=== PATIENT | male | born 1935 | race Hispanic/Latino ===

== ENCOUNTER 2016-12-03 15:34 | Inpatient (IN) | payer MEDICARE ==
[2016-12-03 17:41] LABS: Basophils % (Auto) 0.6 % (0.0-1.8); Eosinophils % (Auto) 3.6 % (0.0-4.3); Hematocrit 47.2 % (35.5-45.6); Hemoglobin 15.5 gm/dl (11.8-15.2); Mean Corpuscular HGB Conc 33 % (32-34); Mean Corpuscular Hemoglobin 28 pg (28-32); Mean Corpuscular Volume 84 fl (84-94); Platelet Count 178 K/mm3 (140-440); Red Blood Count 5.61 M/mm3 (3.65-5.03); White Blood Count 6.5 K/mm3 (4.5-11.0)
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
[2016-12-03] MEDS ORDERED: NACL 0.9% 1000 ML 1,000 ML IV ONE (17:56)
[2016-12-03 18:05] LABS: Alanine Aminotransferase 10 units/L (7-56); Albumin 3.8 g/dL (3.9-5); Albumin/Globulin Ratio 1.2 %; Alkaline Phosphatase 88 units/L (35-129); BUN/Creatinine Ratio 13.75; Bilirubin,Total 0.4 mg/dL (0.1-1.2); Blood Urea Nitrogen 11 mg/dL (9-20); Calcium 9.8 mg/dL (8.4-10.2); Carbon Dioxide 22 mmol/L (22-30); Glucose 112 mg/dL (75-100); Potassium 4.1 mmol/L (3.6-5.0); Sodium 139 mmol/L (137-145)
[2016-12-03 18:15] LABS: INR 1.98 (0.87-1.13)
[2016-12-03 18:16] LABS: Partial Thromboplastin Time 35.9 Sec. (24.2-36.6)
[2016-12-03 18:20] LABS: Anion Gap 18 mmol/L
[2016-12-03] MEDS ORDERED: MORPHINE IV ONE (18:36)
[2016-12-03] MEDS ORDERED: ZOFRAN IV ONE (18:36)
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
[2016-12-03 21:10] LABS: Urine Drugs of Abuse Note Disclamer
[2016-12-03 21:19] LABS: Bilirubin,Urine NEG (Negative); Blood,Urine NEG (Negative); Ketones,Urine NEG (Negative); Leukocyte Esterase,Urine SM (Negative); Mucus,Urine 2+ /HPF; Nitrite,Urine NEG (Negative); Protein,Urine <15 mg/dL mg/dL (Negative); Urobilinogen,Urine < 2.0 mg/dL (<2.0)
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
[2016-12-04] MEDS ORDERED: ROCEPHIN/NS 1 GM/50 ML 50 ML IV ONE (02:24)
--- NOTE | 2016-12-04 03:13 | Admit Criteria Form ---
Admission Criteria Documentation: URINARY COMPLICATIONS Clinical Indications for Inpatient Care (Place 'X' for any and all applicable criteria): Ongoing inpatient care may be indicated for urinary complications with ANY ONE of the following: [X ]I. Urinary tract infection requiring inpatient care as indicated by ANY ONE of the following(8)(19)(20): [ ]a) Severe symptoms (eg, high fever, severe pain) [ ]b) Vomiting or dehydration requiring ongoing inpatient care [X ]c) IV antibiotic needs that cannot be managed at lower level of care [ ]d) Hemodynamic instability [ ]e) Obstruction of collecting system by stone or tumor [ ]II. Urinary retention requiring drainage or surgery (3)(4)(5)(17)(18) [ ]III. Renal failure (Use Renal Failure Criteria for further information.) [ ]IV. Oliguria(30) [ ]V. Post obstructive diuresis requiring close monitoring of urine output and intravenous compensation for excessive fluid losses(33) Extended stay beyond goal length of stay for primary condition may be needed until ALL of the following are present(3)(4)(5)(8): [ ]a) Renal function (creatinine) at baseline, or daily decreases in creatinine consistent with renal function return [ ]b) Voiding adequately or with urinary catheter or percutaneous suprapubic tube and management regimen in place that is performable at lower level of care. [ ]c) Urine output adequate [ ]d) Fever absent or resolving [ ]e) Infection absent or treatable at next level of care The original [employer] content created by [employer] has been revised. The portions of the content which have been revised are identified through the use of italic text or in bold, and [facility] has neither reviewed nor approved the modified material. All other unmodified content is copyright [employer] Please see references footnoted in the original [employer] edition 2016 Admission Criteria Met: Yes
[2016-12-04] MEDS: ROCEPHIN/NS 1 GM/50 ML 50 ML IV SCH (03:19)
[2016-12-04] MEDS: D5NS 1,000 ML IV SCH ×2 (03:56→12:18)
[2016-12-04 08:00] LABS: INR 2.29 (0.87-1.13)
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
[2016-12-04] MEDS: CARAFATE PO SCH ×3 (08:18→17:33)
[2016-12-04] MEDS ORDERED: ROCEPHIN/NS 1 GM/50 ML 50 ML IV SCH (10:00)
[2016-12-04] MEDS: ARICEPT PO SCH (10:03)
[2016-12-04] MEDS: INDERAL PO SCH (10:03)
[2016-12-04] MEDS: ZESTRIL PO SCH (10:03)
[2016-12-04] MEDS ORDERED: ZOFRAN IV PRN (12:32)
--- NOTE | 2016-12-04 12:33 | Progress Note ---
Assessment and Plan Assessment and plan: Acute metabolic encephalopathy, improving. he is less confused. Etiology unclear UTI. Started on Levaquin iv Dysphagia. Consult GI. he has history of hiatal hernia, dilatations. Left facial lesion. Surgery consulted. He has been seen by Dr. sullivan. Will need excision. On anticoagulation with Coumadin. INR therapeutic Full code status History Interval history: Altered mental status. Tremors, difficulty swallowing Hospitalist Physical - Physical exam Narrative exam: Gen appearance : not in acute distress, HEENT: Lesion left cheek, atraumatic, Neck: supple, no JVD. Lungs: clear to auscultation bilaterally, no crackles no wheezes Heart: S1 and S2 regular, no murmurs no gallop Abdomen: soft, non-tender, non-distended, normal bowel sounds Extremities: no edema, no clubbing or cyanosis Neuro : Awake, alert - Constitutional Vitals: Temp Pulse Resp BP Pulse Ox 98.2 F 69 14 177/81 97 12/04/16 08:01 12/04/16 08:01 12/04/16 08:01 12/04/16 08:01 12/04/16 08:01 General appearance: Present: no acute distress, well-nourished Results - Labs CBC & Chem 7: 12/03/16 17:21 12/03/16 17:21 Labs: Laboratory Last Values WBC 6.5 K/mm3 (4.5-11.0) 12/03/16 17:21 RBC 5.61 M/mm3 (3.65-5.03) H 12/03/16 17:21 Hgb 15.5 gm/dl (11.8-15.2) H 12/03/16 17:21 Hct 47.2 % (35.5-45.6) H 12/03/16 17:21 MCV 84 fl (84-94) 12/03/16 17:21 MCH 28 pg (28-32) 12/03/16 17:21 MCHC 33 % (32-34) 12/03/16 17:21 RDW 18.0 % (13.2-15.2) H 12/03/16 17:21 Plt Count 178 K/mm3 (140-440) 12/03/16 17:21 Lymph % (Auto) 16.4 % (13.4-35.0) 12/03/16 17:21 [place] % (Auto) 5.5 % (0.0-7.3) 12/03/16 17:21 Eos % (Auto) 3.6 % (0.0-4.3) 12/03/16 17:21 Baso % (Auto) 0.6 % (0.0-1.8) 12/03/16 17:21 Lymph # 1.1 K/mm3 (1.2-5.4) L 12/03/16 17:21 [place] # 0.4 K/mm3 (0.0-0.8) 12/03/16 17:21 Eos # 0.2 K/mm3 (0.0-0.4) 12/03/16 17:21 Baso # 0.0 K/mm3 (0.0-0.1) 12/03/16 17:21 Seg Neutrophils % 73.9 % (40.0-70.0) H 12/03/16 17:21 Seg Neutrophils # 4.8 K/mm3 (1.8-7.7) 12/03/16 17:21 PT 25.3 Sec. (12.2-14.9) H 12/04/16 07:30 INR 2.29 (0.87-1.13) H 12/04/16 07:30 APTT 35.9 Sec. (24.2-36.6) 12/03/16 17:47 Sodium 139 mmol/L (137-145) 12/03/16 17:21 Potassium 4.1 mmol/L (3.6-5.0) 12/03/16 17:21 Chloride 103.0 mmol/L (98-107) 12/03/16 17:21 Carbon Dioxide 22 mmol/L (22-30) 12/03/16 17:21 Anion Gap 18 mmol/L 12/03/16 17:21 BUN 11 mg/dL (9-20) 12/03/16 17:21 Creatinine 0.8 mg/dL (0.8-1.5) 12/03/16 17:21 Estimated GFR > 60 ml/min 12/03/16 17:21 BUN/Creatinine Ratio 13.75 % 12/03/16 17:21 Glucose 112 mg/dL (75-100) H 12/03/16 17:21 Lactic Acid 1.7 mmol/L (0.7-2.0) 12/03/16 17:47 Calcium 9.8 mg/dL (8.4-10.2) 12/03/16 17:21 Magnesium 1.9 mg/dL (1.7-2.3) 12/03/16 17:47 Total Bilirubin 0.4 mg/dL (0.1-1.2) 12/03/16 17:21 AST 15 units/L (5-40) 12/03/16 17:21 ALT 10 units/L (7-56) 12/03/16 17:21 Alkaline Phosphatase 88 units/L (35-129) 12/03/16 17:21 NT-Pro-B Natriuret Pep 240.3 pg/mL (0-900) 12/03/16 17:47 Total Protein 7.0 g/dL (6.3-8.2) 12/03/16 17:21 Albumin 3.8 g/dL (3.9-5) L 12/03/16 17:21 Albumin/Globulin Ratio 1.2 % 12/03/16 17:21 Lipase 62 units/L (13-60) H 12/03/16 17:21 Urine Color Yellow (Yellow) 12/03/16 21:00 Urine Turbidity Clear (Clear) 12/03/16 21:00 Urine pH 5.0 (5.0-7.0) 12/03/16 21:00 Ur Specific [place] 1.014 (1.003-1.030) 12/03/16 21:00 Urine Protein <15 mg/dl mg/dL (Negative) 12/03/16 21:00 Urine Glucose (UA) Neg mg/dL (Negative) 12/03/16 21:00 Urine Ketones Neg mg/dL (Negative) 12/03/16 21:00 Urine Blood Neg (Negative) 12/03/16 21:00 Urine Nitrite Neg (Negative) 12/03/16 21:00 Urine Bilirubin Neg (Negative) 12/03/16 21:00 Urine Urobilinogen < 2.0 mg/dL (<2.0) 12/03/16 21:00 Ur Leukocyte Esterase Sm (Negative) 12/03/16 21:00 Urine WBC (Auto) 11.0 /HPF (0.0-6.0) H 12/03/16 21:00 Urine RBC (Auto) 3.0 /HPF (0.0-6.0) 12/03/16 21:00 U Epithel Cells (Auto) < 1.0 /HPF (0-13.0) 12/03/16 21:00 Urine Mucus 2+ /HPF 12/03/16 21:00 Urine Opiates Screen Presumptive negative 12/03/16 21:00 Urine Methadone Screen Presumptive negative 12/03/16 21:00 Ur Barbiturates Screen Presumptive negative 12/03/16 21:00 Ur Phencyclidine Scrn Presumptive negative 12/03/16 21:00 Ur Amphetamines Screen Presumptive negative 12/03/16 21:00 U Benzodiazepines Scrn Presumptive positive 12/03/16 21:00 Urine Cocaine Screen Presumptive negative 12/03/16 21:00 U Marijuana (THC) Screen Presumptive positive 12/03/16 21:00 Drugs of Abuse Note Disclamer 12/03/16 21:00 Plasma/Serum Alcohol < 0.01 gm% (0-0.07) 12/03/16 17:47
[2016-12-04 13:02] LABS: Bilirubin,Urine NEG (Negative); Blood,Urine NEG (Negative); Ketones,Urine NEG (Negative); Leukocyte Esterase,Urine NEG (Negative); Mucus,Urine FEW /HPF; Nitrite,Urine NEG (Negative); Protein,Urine <15 mg/dL mg/dL (Negative); Urobilinogen,Urine < 2.0 mg/dL (<2.0)
[2016-12-04] MEDS ORDERED: COUMADIN PO SCH (17:00)
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
[2016-12-04] MEDS ORDERED: WATER FOR IRRIG STERILE IR ONE (19:46)
[2016-12-04] MEDS ORDERED: NACL 0.9% 1000 ML 1,000 ML ONE (19:46)
--- NOTE | 2016-12-04 20:04 | Anesthesia Consultation ---
Addendum entered and electronically signed by FIDEL ACEVEDO PA 12/10/16 11:47 : No changes from previous. CTA B, RRR No anesthesia complications noted from previous. Consent updated. Questions answered RAMON Modi Addendum entered and electronically signed by TOMAS TABARES PAAA 12/05/16 16: 29: No remarkable changes from yesterday's assessment. PENELOPE Stephens Original Note: Anesthesia Consult and Med Hx Date of service: 12/04/16 - Airway Anesthetic Teeth Evaluation: Good ROM Head & Neck: Adequate Mental/Hyoid Distance: Adequate Mallampati Class: Class II Intubation Access Assessment: Probably Good - Pulmonary Exam CTA: Yes - Cardiac Exam Cardiac Exam: RRR - Pre-Operative Health Status ASA Pre-Surgery Classification: ASA4, Emergency Proposed Anesthetic Plan: MAC - Pulmonary Hx Smoking: Yes Hx Asthma: No COPD: Yes Hx Pneumonia: No - Cardiovascular System Hx Hypertension: Yes (takes metoprolol) Hx Coronary Artery Disease: Yes (hyperlipidemia) Hx Heart Attack/AMI: (CE neg x 3; EF 55-60% per echo 05/02) Hx Angina: Yes Hx Cardia Arrhythmia: Yes (Afib; chronic anticoagulation; Lovenox stopped 04/25; 5mg Vit K PO) Hx Pacemaker: Yes (Ventricular pacing w/ capt; Sick Sinus Syndrome) - Central Nervous System Hx Neuromuscular Disorder: Yes (neuropathy BLE; migraines) Hx Seizures: Yes CVA: Yes Hx Psychiatric Problems: No - Gastrointestinal Hx Ulcer: Yes Hx Gastroesophageal Reflux Disease: Yes (hiatal hernia; largely intrathoracic stomach) - Endocrine Hx Renal Disease: No Hx End Stage Renal Disease: No Hx Liver Disease: No Hx Insulin Dependent Diabetes: No Hx Thyroid Disease: No - Other Systems 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
--- NOTE | 2016-12-04 20:05 | Anesthesia Day of Surgery ---
Anesthesia Day of Surgery - Day of Surgery Patient Examined: Yes Patient H&P Reviewed: Yes Patient is NPO: Yes Beta Blockers: Yes
[2016-12-04] MEDS ORDERED: XYLOCAINE MPF 2% ONE ×2 (20:06→22:45)
[2016-12-04] MEDS ORDERED: AMIDATE IV ONE ×5 (20:06→22:45)
[2016-12-04] MEDS ORDERED: DIPRIVAN 10 MG/ML IV ONE ×2 (20:58→21:43)
[2016-12-04] MEDS ORDERED: SUBLIMAZE ONE (22:43)
[2016-12-04] MEDS ORDERED: QUELICIN ONE (22:45)
--- NOTE | 2016-12-04 23:33 | Post Operative Note ---
Pre-op diagnosis: Dysphagia Post-op diagnosis: other (dysphagia, foreign body) Findings: EGD Esophagus: Impacted food bolus at 35cm from the oral entry site. Multiple maneuvers were performed to break up the food bolus, including Rat tooth forceps , Causey net, 4 prong grasper. The scope was finally able to traverse the bolus and enter the stomach with severe resistance noted. No dilation could be performed due to pt being on therapeutic A/C. Some of the food was able to be pushed into the stomach, but not all. Stomach: normal Duodenum: normal Plan: 1) Observe post-procedure 2) Will give trial of liquids and if fails, will consider repeat EGD 3) In the future, pureed diet Procedure: EGD w/ foreign body removal Anesthesia: MAC Surgeon: HORTENSIA ZAMORA Estimated blood loss: minimal Pathology: none Condition: stable
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
--- NOTE | 2016-12-04 23:37 | Post Operative Note ---
Pre-op diagnosis: Dypshagia, foreign body Post-op diagnosis: same Findings: Post-EGD, pt was given water to drink; shortly thereafter, pt vomited water back up, indicating the food bolus was still present, despite removal of some of the bolus. Options were to: 1) Reverse INR and re-attempt in AM with dilation (but this would carry a risk of esophageal necrosis if the food bolus was still present) 2 ) Intubate and use Causey net to retrieve bolus piecemeal. We opted for option #2; pt intubated w/o problems. Scope inserted into mouth and food bolus had largely passed. Additional bolus was able to be advanced with scope across the GE junction into the stomach. Very friable mucosa was seen at the GE junction. From the scope passage, a degree of dilation occurred with minimal blood loss. Rec: 1) Return to floor 2) Trial of liquids and if tolerates, would advance to pureed 3) Pt will eventually need dilation, but can be done as outpatient when holding Coumadin Procedure: EGD w/ foreign body removal Anesthesia: GETA Surgeon: HORTENSIA ZAMORA Estimated blood loss: minimal Pathology: none Condition: stable Disposition: floor
[2016-12-05] MEDS: INDERAL PO SCH ×3 (00:07→21:47)
[2016-12-05] MEDS: CARAFATE PO SCH ×5 (00:07→21:47)
[2016-12-05] MEDS: DESYREL PO SCH ×3 (00:07→21:47)
--- NOTE | 2016-12-05 00:08 | Operative Report ---
PROCEDURE PERFORMED: Upper endoscopy with foreign body removal. PREOPERATIVE DIAGNOSIS: Dysphagia. POSTOPERATIVE DIAGNOSES: Dysphagia, foreign body. ANESTHESIA: Via monitored anesthesia care. DESCRIPTION OF PROCEDURE: After informed consent was obtained, the patient was placed in left lateral decubitus position. The standard Fujinon upper endoscope was inserted into the esophagus where a food bolus was encountered. After multiple maneuvers to alleviate the food bolus, the scope was advanced into the stomach and up to the duodenum. The scope was then carefully withdrawn and mucosa was carefully examined. FINDINGS: Esophagus: There was evidence of an impacted food bolus at 35 cm from the oral entry site. Multiple maneuvers were performed to break up the food bolus including usage of rat tooth forceps, Causey net, and the 4-prong grasper. The scope was finally able to traverse the center of the bolus and into the stomach with resistance noted. Unfortunately, no dilation was able to be performed due to the patient being on therapeutic anticoagulation. Some of the food was able to be pushed into the stomach, but not all. Stomach: Appeared normal. Duodenum: There were superficial ulcerations in the duodenal bulb. COMPLICATIONS: None. ESTIMATED BLOOD LOSS: Minimal. IMPRESSION: An 81-year-old gentleman with acute dysphagia, status post upper endoscopy with removal of partial food bolus. RECOMMENDATIONS: 1. We will observe the patient post-procedure. 2. We will subsequently give a trial of liquids and if he fails, I will consider a repeat EGD either later this evening or tomorrow morning. 3. In the future, I would recommend consumption of a pureed diet. [facility]# [id number] MARION/KAREL HOLMAN
--- NOTE | 2016-12-05 00:34 | Operative Report ---
PROCEDURE PERFORMED: Upper endoscopy with foreign body removal. PREOPERATIVE DIAGNOSIS: Dysphagia, foreign body. POSTOPERATIVE DIAGNOSIS: Dysphagia, foreign body. ANESTHESIA: Via general anesthesia, with intubation. HISTORY: An 81-year-old gentleman with acute dysphagia with food bolus seen on upper endoscopy. He is status post upper endoscopy with partial removal of the food bolus. Post-EGD, we allowed the patient to slowly wake up and he was given water to drink, but shortly thereafter, he vomited the water backup giving me the indication that the food bolus was still present. Options were to: #1 reverse the INR and re-attempt tomorrow morning with dilation (but this would carry a risk of esophageal necrosis if the food bolus is still present for an additional 9 to 10 hours from now) and #2 to intubate the patient now and use a Causey Net to retrieve the remaining bolus in a piecemeal fashion. I felt that option #2 was the best for the patient, so he was subsequently intubated by Anesthesia without any difficulty. DESCRIPTION OF PROCEDURE: After informed consent was obtained, the patient was left in a supine position and intubated via anesthesia. He was subsequently turned onto the left lateral decubitus position. The Fujinon upper endoscope was inserted into the mouth and advanced to the second portion of the duodenum. The scope was then carefully withdrawn, and mucosa was carefully examined. FINDINGS: Esophagus: The food bolus, which was previously seen, had largely passed but there was additional bolus that was present. This was able to be advanced into the stomach with gentle scope pressure. There was very friable mucosa seen at the GE junction with minimal bleeding noted. From the scope passage alone, a degree of dilation occurred at the level of the GE junction with minimal blood loss. Stomach: Old food contents/liquid Duodenum: Again, superficial ulcerations noted. COMPLICATIONS: None. ESTIMATED BLOOD LOSS: Minimal. IMPRESSION: An 81-year-old gentleman status post repeat upper endoscopy for foreign body removal. The majority of the bolus actually did pass in between the initial endoscopy and repeat endoscopy. However, there was additional food bolus that needed to be advanced into the stomach. The maneuver was successful. RECOMMENDATIONS: 1. Return to floor. 2. Trial of liquids and if the patient tolerates, I would recommend advancing his diet to pureed in the morning. 3. He will eventually need a dilation, but this can be done as an outpatient after Coumadin is held for an appropriate amount of time. JOB# [id number] MARION/KAREL HOLMAN
[2016-12-05] MEDS: D5NS 1,000 ML IV SCH ×2 (02:30→12:56)
--- NOTE | 2016-12-05 03:39 | Progress Note ---
Subjective Narrative: Pt seen and evaluated yesterday ,contacted his son ,Had a detailed Hx ,in brief an elderly lives with his son had a huge H Hernia requiring a repair about 2years ago in [facility] , seen regularly By GI for dilitation of the esophagus , last time was about 6 weeks ago ,in with epigastric pain and nausea .I talked mahamed Gr who thankfully saw the Pt ,underwent retrieval of a large bolus of food . Ot in also C/O bleeding lesion about 1x1 Cm in the left cheek ,Pt is on coumadin for a pace maker with sick sinus syndrome .needs an excsional Bx will need to D/C coumadin ,talked to son as to that as well . Objective Vital Signs - 12hr 12/04/16 20:00 Temperature 97.6 F Pulse Rate 65 Respiratory 18 Rate Blood Pressure 147/80 O2 Sat by Pulse 98 Oximetry - Labs 12/03/16 17:21 12/03/16 17:21
[2016-12-05] MEDS: MORPHINE IV PRN ×2 (06:05→15:35)
--- NOTE | 2016-12-05 07:40 | Gastroenterology Progress Note ---
Assessment and Plan 81yo man with dysphagia s/p EGD x 2 last evening with removal of food bolus. Rec: 1) Start clear liquids this AM; if tolerates, may advance diet to pureed 2) Would avoid meats at all costs 3) He can f/u as an outpatient for repeat EGD with dilation, with appropriate cessation of Coumadin prior to the procedure I will stop following daily, but please re-call with any questions. Thank you! Subjective Date of service: 12/05/16 Principal diagnosis: Dysphagia/foreign body Interval history: Pt seen/examined today. S/P EGD x 2 last night with removal of large food bolus. Pt states that he feels much better today. No abdominal pain at this time, but had some discomfort overnight. No fevers, no signs of bleeding. No CP/SOB. Objective - Constitutional Vitals: Temp Pulse Resp BP Pulse Ox 98.8 F 72 20 122/63 95 12/05/16 04:00 12/05/16 04:00 12/05/16 04:00 12/05/16 04:00 12/05/16 04:00 General appearance: no acute distress - Neck Neck: supple - Respiratory Respiratory: bilateral: CTA - Cardiovascular Rhythm: regular Heart Sounds: Present: S1 & S2 - Extremities Extremities: No edema - Gastrointestinal General gastrointestinal: Present: soft, non-tender, non-distended, normal bowel sounds - Neurologic Neurological: alert and oriented x3 - Labs CBC & Chem 7: 12/03/16 17:21 12/03/16 17:21 Labs: Laboratory Results - last 24 hr 12/04/16 12/04/16 07:30 12:40 PT 25.3 H INR 2.29 H Urine Color Yellow Urine Turbidity Clear Urine pH 5.0 Ur Specific [place] 1.021 Urine Protein <15 mg/dl Urine Glucose (UA) Neg Urine Ketones Neg Urine Blood Neg Urine Nitrite Neg Urine Bilirubin Neg Urine Urobilinogen < 2.0 Ur Leukocyte Esterase Neg Urine WBC (Auto) 2.0 Urine RBC (Auto) 2.0 Urine Mucus Few
[2016-12-05 07:55] LABS: INR 2.5 (0.87-1.13)
[2016-12-05] MEDS: ROCEPHIN/NS 1 GM/50 ML 50 ML IV SCH (12:56)
[2016-12-05] MEDS: ARICEPT PO SCH (12:57)
[2016-12-05] MEDS: ZESTRIL PO SCH (12:58)
--- NOTE | 2016-12-05 14:42 | Progress Note ---
Assessment and Plan Assessment and plan: Acute metabolic encephalopathy, improving. he is less confused. Etiology unclear UTI. Started on Levaquin iv Dysphagia due to stuck bolus of food, s/p EGD and food disempaction yesterday. He has history of hiatal hernia, dilatations and will need follow up as outpatient for dilatation.. Left facial lesion. Surgery consulted. He has been seen by Dr. sullivan. Will need excision, likely to be done next 1-2 days. Coumadin held. I discussed with Dr. Sullivan and family.. On anticoagulation with Coumadin. INR therapeutic, now Coumadin put on hold because of anticipated surgery. Full code status Disposition: For SNF placement History Interval history: Altered mental status improved. difficulty swallowing-better after EGD Hospitalist Physical - Physical exam Narrative exam: Gen appearance : not in acute distress, HEENT: Lesion left cheek, atraumatic, Neck: supple, no JVD. Lungs: clear to auscultation bilaterally, no crackles no wheezes Heart: S1 and S2 regular, no murmurs no gallop Abdomen: soft, non-tender, non-distended, normal bowel sounds Extremities: no edema, no clubbing or cyanosis Neuro : Awake, alert - Constitutional Vitals: Temp Pulse Resp BP Pulse Ox 98.1 F 74 18 99/51 99 12/05/16 11:00 12/05/16 11:00 12/05/16 11:00 12/05/16 11:00 12/05/16 08:09 General appearance: Present: no acute distress, well-nourished Results - Labs CBC & Chem 7: 12/03/16 17:21 12/03/16 17:21 Labs: Laboratory Last Values WBC 6.5 K/mm3 (4.5-11.0) 12/03/16 17:21 RBC 5.61 M/mm3 (3.65-5.03) H 12/03/16 17:21 Hgb 15.5 gm/dl (11.8-15.2) H 12/03/16 17:21 Hct 47.2 % (35.5-45.6) H 12/03/16 17:21 MCV 84 fl (84-94) 12/03/16 17:21 MCH 28 pg (28-32) 12/03/16 17:21 MCHC 33 % (32-34) 12/03/16 17:21 RDW 18.0 % (13.2-15.2) H 12/03/16 17:21 Plt Count 178 K/mm3 (140-440) 12/03/16 17:21 Lymph % (Auto) 16.4 % (13.4-35.0) 12/03/16 17:21 [place] % (Auto) 5.5 % (0.0-7.3) 12/03/16 17:21 Eos % (Auto) 3.6 % (0.0-4.3) 12/03/16 17:21 Baso % (Auto) 0.6 % (0.0-1.8) 12/03/16 17:21 Lymph # 1.1 K/mm3 (1.2-5.4) L 12/03/16 17:21 [place] # 0.4 K/mm3 (0.0-0.8) 12/03/16 17:21 Eos # 0.2 K/mm3 (0.0-0.4) 12/03/16 17:21 Baso # 0.0 K/mm3 (0.0-0.1) 12/03/16 17:21 Seg Neutrophils % 73.9 % (40.0-70.0) H 12/03/16 17:21 Seg Neutrophils # 4.8 K/mm3 (1.8-7.7) 12/03/16 17:21 PT 27.1 Sec. (12.2-14.9) H 12/05/16 07:00 INR 2.50 (0.87-1.13) H 12/05/16 07:00 APTT 35.9 Sec. (24.2-36.6) 12/03/16 17:47 Sodium 139 mmol/L (137-145) 12/03/16 17:21 Potassium 4.1 mmol/L (3.6-5.0) 12/03/16 17:21 Chloride 103.0 mmol/L (98-107) 12/03/16 17:21 Carbon Dioxide 22 mmol/L (22-30) 12/03/16 17:21 Anion Gap 18 mmol/L 12/03/16 17:21 BUN 11 mg/dL (9-20) 12/03/16 17:21 Creatinine 0.8 mg/dL (0.8-1.5) 12/03/16 17:21 Estimated GFR > 60 ml/min 12/03/16 17:21 BUN/Creatinine Ratio 13.75 % 12/03/16 17:21 Glucose 112 mg/dL (75-100) H 12/03/16 17:21 Lactic Acid 1.7 mmol/L (0.7-2.0) 12/03/16 17:47 Calcium 9.8 mg/dL (8.4-10.2) 12/03/16 17:21 Magnesium 1.9 mg/dL (1.7-2.3) 12/03/16 17:47 Total Bilirubin 0.4 mg/dL (0.1-1.2) 12/03/16 17:21 AST 15 units/L (5-40) 12/03/16 17:21 ALT 10 units/L (7-56) 12/03/16 17:21 Alkaline Phosphatase 88 units/L (35-129) 12/03/16 17:21 NT-Pro-B Natriuret Pep 240.3 pg/mL (0-900) 12/03/16 17:47 Total Protein 7.0 g/dL (6.3-8.2) 12/03/16 17:21 Albumin 3.8 g/dL (3.9-5) L 12/03/16 17:21 Albumin/Globulin Ratio 1.2 % 12/03/16 17:21 Lipase 62 units/L (13-60) H 12/03/16 17:21 Urine Color Yellow (Yellow) 12/04/16 12:40 Urine Turbidity Clear (Clear) 12/04/16 12:40 Urine pH 5.0 (5.0-7.0) 12/04/16 12:40 Ur Specific [place] 1.021 (1.003-1.030) 12/04/16 12:40 Urine Protein <15 mg/dl mg/dL (Negative) 12/04/16 12:40 Urine Glucose (UA) Neg mg/dL (Negative) 12/04/16 12:40 Urine Ketones Neg mg/dL (Negative) 12/04/16 12:40 Urine Blood Neg (Negative) 12/04/16 12:40 Urine Nitrite Neg (Negative) 12/04/16 12:40 Urine Bilirubin Neg (Negative) 12/04/16 12:40 Urine Urobilinogen < 2.0 mg/dL (<2.0) 12/04/16 12:40 Ur Leukocyte Esterase Neg (Negative) 12/04/16 12:40 Urine WBC (Auto) 2.0 /HPF (0.0-6.0) 12/04/16 12:40 Urine RBC (Auto) 2.0 /HPF (0.0-6.0) 12/04/16 12:40 U Epithel Cells (Auto) < 1.0 /HPF (0-13.0) 12/03/16 21:00 Urine Mucus Few /HPF 12/04/16 12:40 Urine Opiates Screen Presumptive negative 12/03/16 21:00 Urine Methadone Screen Presumptive negative 12/03/16 21:00 Ur Barbiturates Screen Presumptive negative 12/03/16 21:00 Ur Phencyclidine Scrn Presumptive negative 12/03/16 21:00 Ur Amphetamines Screen Presumptive negative 12/03/16 21:00 U Benzodiazepines Scrn Presumptive positive 12/03/16 21:00 Urine Cocaine Screen Presumptive negative 12/03/16 21:00 U Marijuana (THC) Screen Presumptive positive 12/03/16 21:00 Drugs of Abuse Note Disclamer 12/03/16 21:00 Plasma/Serum Alcohol < 0.01 gm% (0-0.07) 12/03/16 17:47
[2016-12-06] MEDS: D5NS 1,000 ML IV SCH ×2 (00:21→16:04)
--- NOTE | 2016-12-06 02:23 | Progress Note ---
Subjective Patient Reports: Positive: feels better Narrative: more alert , lengthy talk with brother , INR still high ,will postpone excision of the facial lesion , case discussed with Dr Monahan as to placement Ltac ? Objective Vital Signs - 12hr 12/05/16 12/05/16 12/05/16 15:06 21:47 22:00 Temperature 97.8 F Pulse Rate 60 Pulse Rate [ 60 68 Left] Respiratory 16 22 Rate Blood Pressure 117/65 Blood Pressure 91/52 [Right Arm] O2 Sat by Pulse 95 98 Oximetry 12/05/16 23:00 Temperature 97.1 F L Pulse Rate Pulse Rate [ 60 Left] Respiratory 22 Rate Blood Pressure Blood Pressure 117/65 [Right Arm] O2 Sat by Pulse 97 Oximetry - Labs 12/03/16 17:21 12/03/16 17:21
[2016-12-06 07:35] LABS: INR 2.89 (0.87-1.13)
[2016-12-06] MEDS: ZESTRIL PO SCH (09:10)
[2016-12-06] MEDS: INDERAL PO SCH ×2 (09:10→21:32)
[2016-12-06] MEDS: ROCEPHIN/NS 1 GM/50 ML 50 ML IV SCH (09:12)
[2016-12-06] MEDS: ARICEPT PO SCH (09:12)
[2016-12-06] MEDS: CARAFATE PO SCH ×4 (09:12→21:39)
--- NOTE | 2016-12-06 09:23 | Progress Note ---
Subjective Narrative: noticed increase in INR , 2.89 today , talked to Dr Monahan , will postpone surgery asked Dr Monahan to have hematology involved or staet Vit K Objective Vital Signs - 12hr 12/05/16 12/05/16 12/05/16 21:47 22:00 23:00 Temperature 97.1 F L Pulse Rate 60 Pulse Rate [ 68 60 Left] Respiratory 22 22 Rate Blood Pressure 117/65 Blood Pressure 117/65 [Right Arm] O2 Sat by Pulse 98 97 Oximetry 12/06/16 09:10 Temperature Pulse Rate Pulse Rate [ Left] Respiratory Rate Blood Pressure 115/68 Blood Pressure [Right Arm] O2 Sat by Pulse Oximetry - Labs 12/03/16 17:21 12/03/16 17:21
[2016-12-06] MEDS ORDERED: NACL 0.9% 500 ML 500 ML IV NR (16:38)
[2016-12-06] MEDS: DESYREL PO SCH (21:40)
--- NOTE | 2016-12-06 22:32 | Progress Note ---
Assessment and Plan Assessment and plan: Acute metabolic encephalopathy, improving. He is less confused, close to baseline. Etiology unclear UTI. Continue Levaquin iv Dysphagia due to stuck bolus of food, s/p EGD and food dislodgement yesterday. He has history of hiatal hernia, dilatations and will need follow up as outpatient for dilatation.. Left facial lesion. Surgery consulted. He has been seen by Dr. sullivan. Will need excision. was planned for today but INR 2.89. I discussed with Dr. Sullivan. Will give FFP to reverse Coumadin for surgery. I discussed with cardiology Atrial fibrillation. On anticoagulation with Coumadin. INR therapeutic, now Coumadin put on hold because of anticipated surgery. Full code status Disposition: For SNF placement. Discussed with case management. History Interval history: Altered mental status improved. difficulty swallowing-better after EGD tolerating diet Hospitalist Physical - Physical exam Narrative exam: Gen appearance : not in acute distress, HEENT: Lesion left cheek, atraumatic, Neck: supple, no JVD. Lungs: clear to auscultation bilaterally, no crackles no wheezes Heart: S1 and S2 regular, no murmurs no gallop Abdomen: soft, non-tender, non-distended, normal bowel sounds Extremities: no edema, no clubbing or cyanosis Neuro : Awake, alert,oriented - Constitutional Vitals: Temp Pulse Resp BP Pulse Ox 98.4 F 76 20 136/67 100 12/06/16 20:58 12/06/16 21:32 12/06/16 20:58 12/06/16 20:58 12/06/16 15:57 General appearance: Present: no acute distress, well-nourished Results - Labs CBC & Chem 7: 12/03/16 17:21 12/03/16 17:21 Labs: Laboratory Last Values WBC 6.5 K/mm3 (4.5-11.0) 12/03/16 17:21 RBC 5.61 M/mm3 (3.65-5.03) H 12/03/16 17:21 Hgb 15.5 gm/dl (11.8-15.2) H 12/03/16 17:21 Hct 47.2 % (35.5-45.6) H 12/03/16 17:21 MCV 84 fl (84-94) 12/03/16 17:21 MCH 28 pg (28-32) 12/03/16 17:21 MCHC 33 % (32-34) 12/03/16 17:21 RDW 18.0 % (13.2-15.2) H 12/03/16 17:21 Plt Count 178 K/mm3 (140-440) 12/03/16 17:21 Lymph % (Auto) 16.4 % (13.4-35.0) 12/03/16 17:21 [place] % (Auto) 5.5 % (0.0-7.3) 12/03/16 17:21 Eos % (Auto) 3.6 % (0.0-4.3) 12/03/16 17:21 Baso % (Auto) 0.6 % (0.0-1.8) 12/03/16 17:21 Lymph # 1.1 K/mm3 (1.2-5.4) L 12/03/16 17:21 [place] # 0.4 K/mm3 (0.0-0.8) 12/03/16 17:21 Eos # 0.2 K/mm3 (0.0-0.4) 12/03/16 17:21 Baso # 0.0 K/mm3 (0.0-0.1) 12/03/16 17:21 Seg Neutrophils % 73.9 % (40.0-70.0) H 12/03/16 17:21 Seg Neutrophils # 4.8 K/mm3 (1.8-7.7) 12/03/16 17:21 PT 30.4 Sec. (12.2-14.9) H 12/06/16 06:21 INR 2.89 (0.87-1.13) H 12/06/16 06:21 APTT 35.9 Sec. (24.2-36.6) 12/03/16 17:47 Sodium 139 mmol/L (137-145) 12/03/16 17:21 Potassium 4.1 mmol/L (3.6-5.0) 12/03/16 17:21 Chloride 103.0 mmol/L (98-107) 12/03/16 17:21 Carbon Dioxide 22 mmol/L (22-30) 12/03/16 17:21 Anion Gap 18 mmol/L 12/03/16 17:21 BUN 11 mg/dL (9-20) 12/03/16 17:21 Creatinine 0.8 mg/dL (0.8-1.5) 12/03/16 17:21 Estimated GFR > 60 ml/min 12/03/16 17:21 BUN/Creatinine Ratio 13.75 % 12/03/16 17:21 Glucose 112 mg/dL (75-100) H 12/03/16 17:21 Lactic Acid 1.7 mmol/L (0.7-2.0) 12/03/16 17:47 Calcium 9.8 mg/dL (8.4-10.2) 12/03/16 17:21 Magnesium 1.9 mg/dL (1.7-2.3) 12/03/16 17:47 Total Bilirubin 0.4 mg/dL (0.1-1.2) 12/03/16 17:21 AST 15 units/L (5-40) 12/03/16 17:21 ALT 10 units/L (7-56) 12/03/16 17:21 Alkaline Phosphatase 88 units/L (35-129) 12/03/16 17:21 NT-Pro-B Natriuret Pep 240.3 pg/mL (0-900) 12/03/16 17:47 Total Protein 7.0 g/dL (6.3-8.2) 12/03/16 17:21 Albumin 3.8 g/dL (3.9-5) L 12/03/16 17:21 Albumin/Globulin Ratio 1.2 % 12/03/16 17:21 Lipase 62 units/L (13-60) H 12/03/16 17:21 Urine Color Yellow (Yellow) 12/04/16 12:40 Urine Turbidity Clear (Clear) 12/04/16 12:40 Urine pH 5.0 (5.0-7.0) 12/04/16 12:40 Ur Specific [place] 1.021 (1.003-1.030) 12/04/16 12:40 Urine Protein <15 mg/dl mg/dL (Negative) 12/04/16 12:40 Urine Glucose (UA) Neg mg/dL (Negative) 12/04/16 12:40 Urine Ketones Neg mg/dL (Negative) 12/04/16 12:40 Urine Blood Neg (Negative) 12/04/16 12:40 Urine Nitrite Neg (Negative) 12/04/16 12:40 Urine Bilirubin Neg (Negative) 12/04/16 12:40 Urine Urobilinogen < 2.0 mg/dL (<2.0) 12/04/16 12:40 Ur Leukocyte Esterase Neg (Negative) 12/04/16 12:40 Urine WBC (Auto) 2.0 /HPF (0.0-6.0) 12/04/16 12:40 Urine RBC (Auto) 2.0 /HPF (0.0-6.0) 12/04/16 12:40 U Epithel Cells (Auto) < 1.0 /HPF (0-13.0) 12/03/16 21:00 Urine Mucus Few /HPF 12/04/16 12:40 Urine Opiates Screen Presumptive negative 12/03/16 21:00 Urine Methadone Screen Presumptive negative 12/03/16 21:00 Ur Barbiturates Screen Presumptive negative 12/03/16 21:00 Ur Phencyclidine Scrn Presumptive negative 12/03/16 21:00 Ur Amphetamines Screen Presumptive negative 12/03/16 21:00 U Benzodiazepines Scrn Presumptive positive 12/03/16 21:00 Urine Cocaine Screen Presumptive negative 12/03/16 21:00 U Marijuana (THC) Screen Presumptive positive 12/03/16 21:00 Drugs of Abuse Note Disclamer 12/03/16 21:00 Plasma/Serum Alcohol < 0.01 gm% (0-0.07) 12/03/16 17:47 Blood Type A POSITIVE 12/06/16 16:38
[2016-12-07 05:48] LABS: INR 1.75 (0.87-1.13)
[2016-12-07] MEDS: CARAFATE PO SCH ×4 (08:00→21:45)
--- NOTE | 2016-12-07 09:04 | Progress Note ---
Subjective Patient Reports: Positive: no new complaints Narrative: case discussed with Dr Monahan , INR still on the high side 1.7 , we need it at 1.1 to1.4 level. Pt can be discharged to a [facility] will proceed early next week. Objective Vital Signs - 12hr 12/06/16 12/06/16 12/06/16 21:32 22:00 23:00 Temperature 97.8 F Pulse Rate 76 60 Pulse Rate [ Apical] Respiratory 16 20 Rate Blood Pressure 135/64 Blood Pressure [Left Arm] O2 Sat by Pulse Oximetry 12/06/16 12/07/16 12/07/16 23:41 00:00 00:30 Temperature 97.4 F L 97.8 F 97.2 F L Pulse Rate 59 L 59 L Pulse Rate [ 60 Apical] Respiratory 18 20 18 Rate Blood Pressure 138/85 130/68 Blood Pressure 135/64 [Left Arm] O2 Sat by Pulse Oximetry 12/07/16 12/07/16 12/07/16 00:41 02:00 02:32 Temperature 98.4 F 98.3 F 97.6 F Pulse Rate 60 60 60 Pulse Rate [ Apical] Respiratory 20 16 16 Rate Blood Pressure 150/86 118/70 137/66 Blood Pressure [Left Arm] O2 Sat by Pulse Oximetry 12/07/16 12/07/16 12/07/16 03:07 04:00 04:17 Temperature 97.4 F L 98.1 F 98.0 F Pulse Rate 60 60 59 L Pulse Rate [ Apical] Respiratory 16 16 16 Rate Blood Pressure 140/65 133/63 133/63 Blood Pressure [Left Arm] O2 Sat by Pulse Oximetry 12/07/16 12/07/16 04:30 08:00 Temperature 97.6 F 98.2 F Pulse Rate 60 Pulse Rate [ 72 Apical] Respiratory 20 16 Rate Blood Pressure 134/86 Blood Pressure 110/64 [Left Arm] O2 Sat by Pulse 100 Oximetry - Labs 12/03/16 17:21 12/03/16 17:21
[2016-12-07] MEDS: ROCEPHIN/NS 1 GM/50 ML 50 ML IV SCH (10:05)
[2016-12-07] MEDS: ZESTRIL PO SCH (12:18)
[2016-12-07] MEDS: ARICEPT PO SCH (12:18)
[2016-12-07] MEDS: INDERAL PO SCH ×2 (12:18→21:45)
--- NOTE | 2016-12-07 13:13 | Progress Note ---
Assessment and Plan Assessment and plan: Acute metabolic encephalopathy, improving. He is less confused, close to baseline. Etiology unclear. UTI. Continue Levaquin iv Dysphagia due to stuck bolus of food, s/p EGD and food dislodgement. He has history of hiatal hernia, dilatations and will need follow up as outpatient for dilatation.. Left facial lesion. Surgeon, Dr. Whiting, following. INR 1.75 today after [address] Whiting says will only do procedure when INR<1.3 because risk of bleeding. Atrial fibrillation. On anticoagulation with Coumadin. INR was therapeutic, now Coumadin put on hold because of anticipated surgery. Full code status Disposition: For SNF placement. Discussed with case management. History Interval history: Altered mental status improved- he is awake, alert. Difficulty swallowing-better after EGD tolerating diet Hospitalist Physical - Physical exam Narrative exam: Gen appearance: not in acute distress, HEENT: Lesion left cheek, atraumatic, Neck: supple, no JVD. Lungs: Clear to auscultation bilaterally, no crackles no wheezes Heart: S1 and S2 regular, no murmurs no gallop Abdomen: soft, non-tender, non-distended, normal bowel sounds Extremities: no edema, no clubbing or cyanosis Neuro : Awake, alert,oriented - Constitutional Vitals: Temp Pulse Resp BP Pulse Ox 98.2 F 72 16 110/64 100 12/07/16 08:00 12/07/16 08:00 12/07/16 08:00 12/07/16 08:00 12/07/16 08:00 General appearance: Present: no acute distress, well-nourished Results - Labs CBC & Chem 7: 12/03/16 17:21 12/03/16 17:21 Labs: Laboratory Last Values WBC 6.5 K/mm3 (4.5-11.0) 12/03/16 17:21 RBC 5.61 M/mm3 (3.65-5.03) H 12/03/16 17:21 Hgb 15.5 gm/dl (11.8-15.2) H 12/03/16 17:21 Hct 47.2 % (35.5-45.6) H 12/03/16 17:21 MCV 84 fl (84-94) 12/03/16 17:21 MCH 28 pg (28-32) 12/03/16 17:21 MCHC 33 % (32-34) 12/03/16 17:21 RDW 18.0 % (13.2-15.2) H 12/03/16 17:21 Plt Count 178 K/mm3 (140-440) 12/03/16 17:21 Lymph % (Auto) 16.4 % (13.4-35.0) 12/03/16 17:21 [place] % (Auto) 5.5 % (0.0-7.3) 12/03/16 17:21 Eos % (Auto) 3.6 % (0.0-4.3) 12/03/16 17:21 Baso % (Auto) 0.6 % (0.0-1.8) 12/03/16 17:21 Lymph # 1.1 K/mm3 (1.2-5.4) L 12/03/16 17:21 [place] # 0.4 K/mm3 (0.0-0.8) 12/03/16 17:21 Eos # 0.2 K/mm3 (0.0-0.4) 12/03/16 17:21 Baso # 0.0 K/mm3 (0.0-0.1) 12/03/16 17:21 Seg Neutrophils % 73.9 % (40.0-70.0) H 12/03/16 17:21 Seg Neutrophils # 4.8 K/mm3 (1.8-7.7) 12/03/16 17:21 PT 20.4 Sec. (12.2-14.9) H 12/07/16 04:59 INR 1.75 (0.87-1.13) H 12/07/16 04:59 APTT 35.9 Sec. (24.2-36.6) 12/03/16 17:47 Sodium 139 mmol/L (137-145) 12/03/16 17:21 Potassium 4.1 mmol/L (3.6-5.0) 12/03/16 17:21 Chloride 103.0 mmol/L (98-107) 12/03/16 17:21 Carbon Dioxide 22 mmol/L (22-30) 12/03/16 17:21 Anion Gap 18 mmol/L 01/16/17 17:21 BUN 11 mg/dL (9-20) 12/03/16 17:21 Creatinine 0.8 mg/dL (0.8-1.5) 12/03/16 17:21 Estimated GFR > 60 ml/min 12/03/16 17:21 BUN/Creatinine Ratio 13.75 % 12/03/16 17:21 Glucose 112 mg/dL (75-100) H 12/03/16 17:21 Lactic Acid 1.7 mmol/L (0.7-2.0) 12/03/16 17:47 Calcium 9.8 mg/dL (8.4-10.2) 12/03/16 17:21 Magnesium 1.9 mg/dL (1.7-2.3) 12/03/16 17:47 Total Bilirubin 0.4 mg/dL (0.1-1.2) 12/03/16 17:21 AST 15 units/L (5-40) 12/03/16 17:21 ALT 10 units/L (7-56) 12/03/16 17:21 Alkaline Phosphatase 88 units/L (35-129) 12/03/16 17:21 NT-Pro-B Natriuret Pep 240.3 pg/mL (0-900) 12/03/16 17:47 Total Protein 7.0 g/dL (6.3-8.2) 12/03/16 17:21 Albumin 3.8 g/dL (3.9-5) L 12/03/16 17:21 Albumin/Globulin Ratio 1.2 % 12/03/16 17:21 Lipase 62 units/L (13-60) H 12/03/16 17:21 Urine Color Yellow (Yellow) 12/04/16 12:40 Urine Turbidity Clear (Clear) 12/04/16 12:40 Urine pH 5.0 (5.0-7.0) 12/04/16 12:40 Ur Specific [place] 1.021 (1.003-1.030) 12/04/16 12:40 Urine Protein <15 mg/dl mg/dL (Negative) 12/04/16 12:40 Urine Glucose (UA) Neg mg/dL (Negative) 12/04/16 12:40 Urine Ketones Neg mg/dL (Negative) 12/04/16 12:40 Urine Blood Neg (Negative) 12/04/16 12:40 Urine Nitrite Neg (Negative) 12/04/16 12:40 Urine Bilirubin Neg (Negative) 12/04/16 12:40 Urine Urobilinogen < 2.0 mg/dL (<2.0) 12/04/16 12:40 Ur Leukocyte Esterase Neg (Negative) 12/04/16 12:40 Urine WBC (Auto) 2.0 /HPF (0.0-6.0) 12/04/16 12:40 Urine RBC (Auto) 2.0 /HPF (0.0-6.0) 12/04/16 12:40 U Epithel Cells (Auto) < 1.0 /HPF (0-13.0) 12/03/16 21:00 Urine Mucus Few /HPF 12/04/16 12:40 Urine Opiates Screen Presumptive negative 12/03/16 21:00 Urine Methadone Screen Presumptive negative 12/03/16 21:00 Ur Barbiturates Screen Presumptive negative 12/03/16 21:00 Ur Phencyclidine Scrn Presumptive negative 12/03/16 21:00 Ur Amphetamines Screen Presumptive negative 12/03/16 21:00 U Benzodiazepines Scrn Presumptive positive 12/03/16 21:00 Urine Cocaine Screen Presumptive negative 12/03/16 21:00 U Marijuana (THC) Screen Presumptive positive 12/03/16 21:00 Drugs of Abuse Note Disclamer 12/03/16 21:00 Plasma/Serum Alcohol < 0.01 gm% (0-0.07) 12/03/16 17:47 Blood Type A POSITIVE 12/06/16 16:38
[2016-12-07] MEDS: DESYREL PO SCH (21:45)
[2016-12-08] MEDS: D5NS 1,000 ML IV SCH (03:07)
[2016-12-08 06:23] LABS: INR 1.95 (0.87-1.13)
[2016-12-08] MEDS: MORPHINE IV PRN (07:00)
[2016-12-08] MEDS ORDERED: VITAMIN K *NICU IV ONE (07:02)
[2016-12-08] MEDS ORDERED: VITAMIN K (ADULT ONLY) 5 MG in NACL 0.9% 50 ML IV ONE (08:00)
[2016-12-08] MEDS: CARAFATE PO SCH ×4 (08:34→21:53)
[2016-12-08] MEDS: ZESTRIL PO SCH (11:25)
[2016-12-08] MEDS: ARICEPT PO SCH (11:29)
[2016-12-08] MEDS: INDERAL PO SCH ×2 (11:29→21:54)
[2016-12-08] MEDS: ROCEPHIN/NS 1 GM/50 ML 50 ML IV SCH (11:30)
--- NOTE | 2016-12-08 12:04 | Progress Note ---
Assessment and Plan Assessment and plan: Acute metabolic encephalopathy, improving. He is less confused, close to baseline. Etiology unclear. UTI. Continue Levaquin iv Dysphagia due to stuck bolus of food, s/p EGD and food dislodgement. He has history of hiatal hernia, dilatations and will need follow up as outpatient for dilatation.. Left facial lesion. Surgeon, Dr. Whiting, following. INR 1.95 today after [address] Whiting says will only do procedure when INR<1.3 because risk of bleeding. Vitamin K ordered Atrial fibrillation. On anticoagulation with Coumadin. INR was therapeutic, now Coumadin put on hold because of anticipated surgery. Full code status Disposition: For SNF placement. Discussed with case management. History Interval history: Altered mental status improved- he is awake, alert. Difficulty swallowing-better after EGD tolerating soft diet Hospitalist Physical - Physical exam Narrative exam: Gen appearance: not in acute distress, HEENT: Lesion left cheek, atraumatic, Neck: supple, no JVD. Lungs: Clear to auscultation bilaterally, no crackles no wheezes Heart: S1 and S2 regular, no murmurs no gallop Abdomen: soft, non-tender, non-distended, normal bowel sounds Extremities: no edema, no clubbing or cyanosis Neuro : Awake, alert,oriented - Constitutional Vitals: Temp Pulse Resp BP Pulse Ox 97.7 F 60 20 150/70 98 12/08/16 08:00 12/08/16 08:00 12/08/16 08:00 12/08/16 11:29 12/08/16 08:00 General appearance: Present: no acute distress, well-nourished Results - Labs CBC & Chem 7: 12/03/16 17:21 12/03/16 17:21 Labs: Laboratory Last Values WBC 6.5 K/mm3 (4.5-11.0) 12/03/16 17:21 RBC 5.61 M/mm3 (3.65-5.03) H 12/03/16 17:21 Hgb 15.5 gm/dl (11.8-15.2) H 12/03/16 17:21 Hct 47.2 % (35.5-45.6) H 12/03/16 17:21 MCV 84 fl (84-94) 12/03/16 17:21 MCH 28 pg (28-32) 12/03/16 17:21 MCHC 33 % (32-34) 12/03/16 17:21 RDW 18.0 % (13.2-15.2) H 12/03/16 17:21 Plt Count 178 K/mm3 (140-440) 12/03/16 17:21 Lymph % (Auto) 16.4 % (13.4-35.0) 12/03/16 17:21 [place] % (Auto) 5.5 % (0.0-7.3) 12/03/16 17:21 Eos % (Auto) 3.6 % (0.0-4.3) 12/03/16 17:21 Baso % (Auto) 0.6 % (0.0-1.8) 12/03/16 17:21 Lymph # 1.1 K/mm3 (1.2-5.4) L 12/03/16 17:21 [place] # 0.4 K/mm3 (0.0-0.8) 12/03/16 17:21 Eos # 0.2 K/mm3 (0.0-0.4) 12/03/16 17:21 Baso # 0.0 K/mm3 (0.0-0.1) 12/03/16 17:21 Seg Neutrophils % 73.9 % (40.0-70.0) H 12/03/16 17:21 Seg Neutrophils # 4.8 K/mm3 (1.8-7.7) 12/03/16 17:21 PT 22.3 Sec. (12.2-14.9) H 12/08/16 05:37 INR 1.95 (0.87-1.13) H 12/08/16 05:37 APTT 35.9 Sec. (24.2-36.6) 12/03/16 17:47 Sodium 139 mmol/L (137-145) 12/03/16 17:21 Potassium 4.1 mmol/L (3.6-5.0) 12/03/16 17:21 Chloride 103.0 mmol/L (98-107) 12/03/16 17:21 Carbon Dioxide 22 mmol/L (22-30) 12/03/16 17:21 Anion Gap 18 mmol/L 12/03/16 17:21 BUN 11 mg/dL (9-20) 12/03/16 17:21 Creatinine 0.8 mg/dL (0.8-1.5) 12/03/16 17:21 Estimated GFR > 60 ml/min 12/03/16 17:21 BUN/Creatinine Ratio 13.75 % 12/03/16 17:21 Glucose 112 mg/dL (75-100) H 12/03/16 17:21 Lactic Acid 1.7 mmol/L (0.7-2.0) 12/03/16 17:47 Calcium 9.8 mg/dL (8.4-10.2) 12/03/16 17:21 Magnesium 1.9 mg/dL (1.7-2.3) 12/03/16 17:47 Total Bilirubin 0.4 mg/dL (0.1-1.2) 12/03/16 17:21 AST 15 units/L (5-40) 12/03/16 17:21 ALT 10 units/L (7-56) 12/03/16 17:21 Alkaline Phosphatase 88 units/L (35-129) 12/03/16 17:21 NT-Pro-B Natriuret Pep 240.3 pg/mL (0-900) 12/03/16 17:47 Total Protein 7.0 g/dL (6.3-8.2) 12/03/16 17:21 Albumin 3.8 g/dL (3.9-5) L 12/03/16 17:21 Albumin/Globulin Ratio 1.2 % 12/03/16 17:21 Lipase 62 units/L (13-60) H 12/03/16 17:21 Urine Color Yellow (Yellow) 12/04/16 12:40 Urine Turbidity Clear (Clear) 12/04/16 12:40 Urine pH 5.0 (5.0-7.0) 12/04/16 12:40 Ur Specific [place] 1.021 (1.003-1.030) 12/04/16 12:40 Urine Protein <15 mg/dl mg/dL (Negative) 12/04/16 12:40 Urine Glucose (UA) Neg mg/dL (Negative) 12/04/16 12:40 Urine Ketones Neg mg/dL (Negative) 12/04/16 12:40 Urine Blood Neg (Negative) 12/04/16 12:40 Urine Nitrite Neg (Negative) 12/04/16 12:40 Urine Bilirubin Neg (Negative) 12/04/16 12:40 Urine Urobilinogen < 2.0 mg/dL (<2.0) 12/04/16 12:40 Ur Leukocyte Esterase Neg (Negative) 12/04/16 12:40 Urine WBC (Auto) 2.0 /HPF (0.0-6.0) 12/04/16 12:40 Urine RBC (Auto) 2.0 /HPF (0.0-6.0) 12/04/16 12:40 U Epithel Cells (Auto) < 1.0 /HPF (0-13.0) 12/03/16 21:00 Urine Mucus Few /HPF 12/04/16 12:40 Urine Opiates Screen Presumptive negative 12/03/16 21:00 Urine Methadone Screen Presumptive negative 12/03/16 21:00 Ur Barbiturates Screen Presumptive negative 12/03/16 21:00 Ur Phencyclidine Scrn Presumptive negative 12/03/16 21:00 Ur Amphetamines Screen Presumptive negative 12/03/16 21:00 U Benzodiazepines Scrn Presumptive positive 12/03/16 21:00 Urine Cocaine Screen Presumptive negative 12/03/16 21:00 U Marijuana (THC) Screen Presumptive positive 12/03/16 21:00 Drugs of Abuse Note Disclamer 12/03/16 21:00 Plasma/Serum Alcohol < 0.01 gm% (0-0.07) 12/03/16 17:47 Blood Type A POSITIVE 12/06/16 16:38
[2016-12-08] MEDS: DESYREL PO SCH (21:54)
[2016-12-09 07:53] LABS: INR 1.23 (0.87-1.13)
[2016-12-09] MEDS: D5NS 1,000 ML IV SCH (09:47)
[2016-12-09] MEDS: ROCEPHIN/NS 1 GM/50 ML 50 ML IV SCH (09:48)
[2016-12-09] MEDS: INDERAL PO SCH ×2 (09:49→21:59)
[2016-12-09] MEDS: ARICEPT PO SCH (09:50)
[2016-12-09] MEDS: CARAFATE PO SCH ×4 (09:50→21:58)
[2016-12-09] MEDS: ZESTRIL PO SCH (09:51)
[2016-12-09] MEDS: TYLENOL PO PRN (10:20)
[2016-12-09] MEDS: MORPHINE IV PRN (12:31)
--- NOTE | 2016-12-09 15:34 | Progress Note ---
Assessment and Plan Assessment and plan: Acute metabolic encephalopathy, resolved. Confusion has resolved . He is back to baseline. UTI. Continue Ceftriaxone iv. To complete 7 days tomorrow Dysphagia due to stuck bolus of food, s/p EGD and food dislodgement. He has history of hiatal hernia, dilatations and will need follow up as outpatient for dilatation.. Left facial lesion. Surgeon, Dr. Whiting, following. INR 1.23 today after 2 Units FFP and Vit K iv. Dr. Wihting says will only do procedure when INR<1.3 because risk of bleeding. For excisional biopsy tomorrow. Atrial fibrillation. On anticoagulation with Coumadin. INR was therapeutic, now Coumadin put on hold because of anticipated surgery. Full code status Disposition: For SNF placement. Discussed with case management. History Interval history: Altered mental status resolved- he is awake, alert. no more confusion tolerating soft diet Hospitalist Physical - Physical exam Narrative exam: Gen appearance: not in acute distress, HEENT: Lesion left cheek, atraumatic, Neck: supple, no JVD. Lungs: Clear to auscultation bilaterally, no crackles no wheezes Heart: S1 and S2 regular, no murmurs no gallop Abdomen: soft, non-tender, non-distended, normal bowel sounds Extremities: no edema, no clubbing or cyanosis Neuro : Awake, alert,oriented - Constitutional Vitals: Temp Pulse Resp BP Pulse Ox 98.2 F 50 L 20 144/66 99 12/09/16 12:45 12/09/16 12:45 12/09/16 12:45 12/09/16 12:45 12/09/16 08:04 General appearance: Present: no acute distress, well-nourished Results - Labs CBC & Chem 7: 12/03/16 17:21 12/03/16 17:21 Labs: Laboratory Last Values WBC 6.5 K/mm3 (4.5-11.0) 12/03/16 17:21 RBC 5.61 M/mm3 (3.65-5.03) H 12/03/16 17:21 Hgb 15.5 gm/dl (11.8-15.2) H 12/03/16 17:21 Hct 47.2 % (35.5-45.6) H 12/03/16 17:21 MCV 84 fl (84-94) 12/03/16 17:21 MCH 28 pg (28-32) 12/03/16 17:21 MCHC 33 % (32-34) 12/03/16 17:21 RDW 18.0 % (13.2-15.2) H 12/03/16 17:21 Plt Count 178 K/mm3 (140-440) 12/03/16 17:21 Lymph % (Auto) 16.4 % (13.4-35.0) 12/03/16 17:21 [place] % (Auto) 5.5 % (0.0-7.3) 12/03/16 17:21 Eos % (Auto) 3.6 % (0.0-4.3) 12/03/16 17:21 Baso % (Auto) 0.6 % (0.0-1.8) 12/03/16 17:21 Lymph # 1.1 K/mm3 (1.2-5.4) L 12/03/16 17:21 [place] # 0.4 K/mm3 (0.0-0.8) 12/03/16 17:21 Eos # 0.2 K/mm3 (0.0-0.4) 12/03/16 17:21 Baso # 0.0 K/mm3 (0.0-0.1) 12/03/16 17:21 Seg Neutrophils % 73.9 % (40.0-70.0) H 12/03/16 17:21 Seg Neutrophils # 4.8 K/mm3 (1.8-7.7) 12/03/16 17:21 PT 15.4 Sec. (12.2-14.9) H 12/09/16 06:26 INR 1.23 (0.87-1.13) H 12/09/16 06:26 APTT 35.9 Sec. (24.2-36.6) 12/03/16 17:47 Sodium 139 mmol/L (137-145) 12/03/16 17:21 Potassium 4.1 mmol/L (3.6-5.0) 12/03/16 17:21 Chloride 103.0 mmol/L (98-107) 12/03/16 17:21 Carbon Dioxide 22 mmol/L (22-30) 01/16/17 17:21 Anion Gap 18 mmol/L 12/03/16 17:21 BUN 11 mg/dL (9-20) 12/03/16 17:21 Creatinine 0.8 mg/dL (0.8-1.5) 12/03/16 17:21 Estimated GFR > 60 ml/min 12/03/16 17:21 BUN/Creatinine Ratio 13.75 % 12/03/16 17:21 Glucose 112 mg/dL (75-100) H 12/03/16 17:21 POC Glucose 106 (70-105) H 12/09/16 10:56 Lactic Acid 1.7 mmol/L (0.7-2.0) 12/03/16 17:47 Calcium 9.8 mg/dL (8.4-10.2) 12/03/16 17:21 Magnesium 1.9 mg/dL (1.7-2.3) 12/03/16 17:47 Total Bilirubin 0.4 mg/dL (0.1-1.2) 12/03/16 17:21 AST 15 units/L (5-40) 12/03/16 17:21 ALT 10 units/L (7-56) 12/03/16 17:21 Alkaline Phosphatase 88 units/L (35-129) 12/03/16 17:21 NT-Pro-B Natriuret Pep 240.3 pg/mL (0-900) 12/03/16 17:47 Total Protein 7.0 g/dL (6.3-8.2) 12/03/16 17:21 Albumin 3.8 g/dL (3.9-5) L 12/03/16 17:21 Albumin/Globulin Ratio 1.2 % 12/03/16 17:21 Lipase 62 units/L (13-60) H 12/03/16 17:21 Urine Color Yellow (Yellow) 12/04/16 12:40 Urine Turbidity Clear (Clear) 12/04/16 12:40 Urine pH 5.0 (5.0-7.0) 12/04/16 12:40 Ur Specific [place] 1.021 (1.003-1.030) 12/04/16 12:40 Urine Protein <15 mg/dl mg/dL (Negative) 12/04/16 12:40 Urine Glucose (UA) Neg mg/dL (Negative) 12/04/16 12:40 Urine Ketones Neg mg/dL (Negative) 12/04/16 12:40 Urine Blood Neg (Negative) 12/04/16 12:40 Urine Nitrite Neg (Negative) 12/04/16 12:40 Urine Bilirubin Neg (Negative) 12/04/16 12:40 Urine Urobilinogen < 2.0 mg/dL (<2.0) 12/04/16 12:40 Ur Leukocyte Esterase Neg (Negative) 12/04/16 12:40 Urine WBC (Auto) 2.0 /HPF (0.0-6.0) 12/04/16 12:40 Urine RBC (Auto) 2.0 /HPF (0.0-6.0) 12/04/16 12:40 U Epithel Cells (Auto) < 1.0 /HPF (0-13.0) 12/03/16 21:00 Urine Mucus Few /HPF 12/04/16 12:40 Urine Opiates Screen Presumptive negative 12/03/16 21:00 Urine Methadone Screen Presumptive negative 12/03/16 21:00 Ur Barbiturates Screen Presumptive negative 12/03/16 21:00 Ur Phencyclidine Scrn Presumptive negative 12/03/16 21:00 Ur Amphetamines Screen Presumptive negative 12/03/16 21:00 U Benzodiazepines Scrn Presumptive positive 12/03/16 21:00 Urine Cocaine Screen Presumptive negative 12/03/16 21:00 U Marijuana (THC) Screen Presumptive positive 12/03/16 21:00 Drugs of Abuse Note Disclamer 12/03/16 21:00 Plasma/Serum Alcohol < 0.01 gm% (0-0.07) 12/03/16 17:47 Blood Type A POSITIVE 12/06/16 16:38
[2016-12-09 17:18] LABS: Hematocrit 36.9 % (35.5-45.6); Hemoglobin 12.4 gm/dl (11.8-15.2); Mean Corpuscular HGB Conc 34 % (32-34); Mean Corpuscular Hemoglobin 28 pg (28-32); Mean Corpuscular Volume 84 fl (84-94); Platelet Count 153 K/mm3 (140-440); Red Cell Distribution Width 17.3 % (13.2-15.2); White Blood Count 4.7 K/mm3 (4.5-11.0)
[2016-12-09] MEDS: DESYREL PO SCH (22:02)
[2016-12-10] MEDS: D5NS 1,000 ML IV SCH ×2 (00:23→15:43)
[2016-12-10] MEDS: MORPHINE IV PRN ×3 (03:29→18:31)
[2016-12-10 07:03] LABS: INR 1.15 (0.87-1.13)
[2016-12-10] MEDS: CARAFATE PO SCH ×4 (08:07→22:35)
[2016-12-10] MEDS: ROCEPHIN/NS 1 GM/50 ML 50 ML IV SCH (10:51)
[2016-12-10] MEDS ORDERED: DIPRIVAN 10 MG/ML IV ONE (11:11)
[2016-12-10] MEDS ORDERED: XYLOCAINE MPF 2% ONE (11:11)
[2016-12-10] MEDS ORDERED: SUBLIMAZE ONE (11:11)
[2016-12-10] MEDS ORDERED: NACL 0.9% 1000 ML 1,000 ML ONE (11:46)
[2016-12-10] MEDS ORDERED: NACL 0.9% 1000 ML 1,000 ML IV SCH (12:00)
[2016-12-10] MEDS ORDERED: PEPCID IV NR (12:00)
--- NOTE | 2016-12-10 12:03 | Anesthesia Day of Surgery ---
Anesthesia Day of Surgery - Day of Surgery Patient Examined: Yes Patient H&P Reviewed: Yes Patient is NPO: Yes Beta Blockers: Yes
--- NOTE | 2016-12-10 12:15 | Progress Note ---
Assessment and Plan Assessment and plan: Acute metabolic encephalopathy, resolved. Confusion has resolved . He is back to baseline. UTI. Continue Ceftriaxone iv. To complete 7 days today. Dysphagia due to stuck bolus of food, s/p EGD and food dislodgement. He has history of hiatal hernia, dilatations and will need follow up with GI as outpatient for dilatation.. Left facial lesion. Surgeon, Dr. Whiting, following. INR 1.15 today after 2 Units FFP and Vit K iv. Dr. Whiting says will only do procedure when INR<1.3 because risk of bleeding. For excisional biopsy today. Atrial fibrillation. On anticoagulation with Coumadin. INR was therapeutic, now Coumadin put on hold because of anticipated surgery. Full code status Disposition: For SNF placement. Discussed with case management. History Interval history: Altered mental status resolved- he is awake, alert. no more confusion tolerating soft diet Hospitalist Physical - Physical exam Narrative exam: Gen appearance: not in acute distress, HEENT: Lesion left cheek, atraumatic, Neck: supple, no JVD. Lungs: Clear to auscultation bilaterally, no crackles no wheezes Heart: S1 and S2 regular, no murmurs no gallop Abdomen: soft, non-tender, non-distended, normal bowel sounds Extremities: no edema, no clubbing or cyanosis Neuro : Awake, alert,oriented - Constitutional Vitals: Temp Pulse Resp BP Pulse Ox 97.7 F 60 20 155/97 97 12/10/16 08:13 12/10/16 08:13 12/10/16 08:13 12/10/16 08:13 12/10/16 08:13 General appearance: Present: no acute distress, well-nourished Results - Labs CBC & Chem 7: 12/09/16 16:51 12/03/16 17:21 Labs: Laboratory Last Values WBC 4.7 K/mm3 (4.5-11.0) 12/09/16 16:51 RBC 4.40 M/mm3 (3.65-5.03) 12/09/16 16:51 Hgb 12.4 gm/dl (11.8-15.2) 12/09/16 16:51 Hct 36.9 % (35.5-45.6) 12/09/16 16:51 MCV 84 fl (84-94) 12/09/16 16:51 MCH 28 pg (28-32) 12/09/16 16:51 MCHC 34 % (32-34) 12/09/16 16:51 RDW 17.3 % (13.2-15.2) H 12/09/16 16:51 Plt Count 153 K/mm3 (140-440) 12/09/16 16:51 Lymph % (Auto) 16.4 % (13.4-35.0) 12/03/16 17:21 [place] % (Auto) 5.5 % (0.0-7.3) 12/03/16 17:21 Eos % (Auto) 3.6 % (0.0-4.3) 12/03/16 17:21 Baso % (Auto) 0.6 % (0.0-1.8) 12/03/16 17:21 Lymph # 1.1 K/mm3 (1.2-5.4) L 12/03/16 17:21 [place] # 0.4 K/mm3 (0.0-0.8) 12/03/16 17:21 Eos # 0.2 K/mm3 (0.0-0.4) 12/03/16 17:21 Baso # 0.0 K/mm3 (0.0-0.1) 12/03/16 17:21 Seg Neutrophils % 73.9 % (40.0-70.0) H 12/03/16 17:21 Seg Neutrophils # 4.8 K/mm3 (1.8-7.7) 12/03/16 17:21 PT 14.6 Sec. (12.2-14.9) 12/10/16 06:11 INR 1.15 (0.87-1.13) H 12/10/16 06:11 APTT 35.9 Sec. (24.2-36.6) 12/03/16 17:47 Sodium 139 mmol/L (137-145) 12/03/16 17:21 Potassium 4.1 mmol/L (3.6-5.0) 12/03/16 17:21 Chloride 103.0 mmol/L (98-107) 12/03/16 17:21 Carbon Dioxide 22 mmol/L (22-30) 12/03/16 17:21 Anion Gap 18 mmol/L 12/03/16 17:21 BUN 11 mg/dL (9-20) 12/03/16 17:21 Creatinine 0.8 mg/dL (0.8-1.5) 12/03/16 17:21 Estimated GFR > 60 ml/min 12/03/16 17:21 BUN/Creatinine Ratio 13.75 % 12/03/16 17:21 Glucose 112 mg/dL (75-100) H 12/03/16 17:21 POC Glucose 103 (70-105) 12/10/16 06:20 Lactic Acid 1.7 mmol/L (0.7-2.0) 12/03/16 17:47 Calcium 9.8 mg/dL (8.4-10.2) 12/03/16 17:21 Magnesium 1.9 mg/dL (1.7-2.3) 12/03/16 17:47 Total Bilirubin 0.4 mg/dL (0.1-1.2) 12/03/16 17:21 AST 15 units/L (5-40) 12/03/16 17:21 ALT 10 units/L (7-56) 12/03/16 17:21 Alkaline Phosphatase 88 units/L (35-129) 12/03/16 17:21 NT-Pro-B Natriuret Pep 240.3 pg/mL (0-900) 12/03/16 17:47 Total Protein 7.0 g/dL (6.3-8.2) 12/03/16 17:21 Albumin 3.8 g/dL (3.9-5) L 12/03/16 17:21 Albumin/Globulin Ratio 1.2 % 12/03/16 17:21 Lipase 62 units/L (13-60) H 12/03/16 17:21 Urine Color Yellow (Yellow) 12/04/16 12:40 Urine Turbidity Clear (Clear) 12/04/16 12:40 Urine pH 5.0 (5.0-7.0) 12/04/16 12:40 Ur Specific [place] 1.021 (1.003-1.030) 12/04/16 12:40 Urine Protein <15 mg/dl mg/dL (Negative) 12/04/16 12:40 Urine Glucose (UA) Neg mg/dL (Negative) 12/04/16 12:40 Urine Ketones Neg mg/dL (Negative) 12/04/16 12:40 Urine Blood Neg (Negative) 12/04/16 12:40 Urine Nitrite Neg (Negative) 12/04/16 12:40 Urine Bilirubin Neg (Negative) 12/04/16 12:40 Urine Urobilinogen < 2.0 mg/dL (<2.0) 12/04/16 12:40 Ur Leukocyte Esterase Neg (Negative) 12/04/16 12:40 Urine WBC (Auto) 2.0 /HPF (0.0-6.0) 12/04/16 12:40 Urine RBC (Auto) 2.0 /HPF (0.0-6.0) 12/04/16 12:40 U Epithel Cells (Auto) < 1.0 /HPF (0-13.0) 12/03/16 21:00 Urine Mucus Few /HPF 12/04/16 12:40 Urine Opiates Screen Presumptive negative 12/03/16 21:00 Urine Methadone Screen Presumptive negative 12/03/16 21:00 Ur Barbiturates Screen Presumptive negative 12/03/16 21:00 Ur Phencyclidine Scrn Presumptive negative 12/03/16 21:00 Ur Amphetamines Screen Presumptive negative 12/03/16 21:00 U Benzodiazepines Scrn Presumptive positive 12/03/16 21:00 Urine Cocaine Screen Presumptive negative 12/03/16 21:00 U Marijuana (THC) Screen Presumptive positive 12/03/16 21:00 Drugs of Abuse Note Disclamer 12/03/16 21:00 Plasma/Serum Alcohol < 0.01 gm% (0-0.07) 12/03/16 17:47 Blood Type A POSITIVE 12/06/16 16:38
[2016-12-10] MEDS ORDERED: NACL 0.9% IR ONE (12:36)
[2016-12-10] MEDS ORDERED: MARCAINE 0.5% INFILTRATI ONE ×2 (12:36)
[2016-12-10] MEDS ORDERED: AMIDATE IV ONE (13:05)
--- NOTE | 2016-12-10 13:44 | Post Anesthesia Evaluation ---
- Post Anesthesia Evaluation Patient Participated: Yes Airway Patent: Yes Stable Respiratory Function: Yes Temp > 96.8F: Yes Pain Manageable: Yes Adequeate Hydration: Yes Anesthesia Complications: No Block Receding Appropriately: Not Applicable
[2016-12-10] MEDS: INDERAL PO SCH ×2 (15:38→22:34)
[2016-12-10] MEDS: ZESTRIL PO SCH (15:39)
[2016-12-10] MEDS: ARICEPT PO SCH (15:40)
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
[2016-12-10] MEDS: DESYREL PO SCH (22:35)
[2016-12-11] MEDS: D5NS 1,000 ML IV SCH (05:48)
[2016-12-11 08:58] LABS: INR 1.17 (0.87-1.13)
--- NOTE | 2016-12-11 09:00 | Progress Note ---
Hospitalist Physical - Constitutional Vitals: Temp Pulse Resp BP Pulse Ox 98.3 F 68 18 133/68 98 12/11/16 04:23 12/11/16 04:23 12/11/16 04:23 12/11/16 04:23 12/11/16 04:23 General appearance: Present: no acute distress, well-nourished Results - Labs CBC & Chem 7: 12/09/16 16:51 12/03/16 17:21 Labs: Laboratory Last Values WBC 4.7 K/mm3 (4.5-11.0) 12/09/16 16:51 RBC 4.40 M/mm3 (3.65-5.03) 12/09/16 16:51 Hgb 12.4 gm/dl (11.8-15.2) 12/09/16 16:51 Hct 36.9 % (35.5-45.6) 12/09/16 16:51 MCV 84 fl (84-94) 12/09/16 16:51 MCH 28 pg (28-32) 12/09/16 16:51 MCHC 34 % (32-34) 12/09/16 16:51 RDW 17.3 % (13.2-15.2) H 12/09/16 16:51 Plt Count 153 K/mm3 (140-440) 12/09/16 16:51 Lymph % (Auto) 16.4 % (13.4-35.0) 12/03/16 17:21 [place] % (Auto) 5.5 % (0.0-7.3) 12/03/16 17:21 Eos % (Auto) 3.6 % (0.0-4.3) 12/03/16 17:21 Baso % (Auto) 0.6 % (0.0-1.8) 12/03/16 17:21 Lymph # 1.1 K/mm3 (1.2-5.4) L 12/03/16 17:21 [place] # 0.4 K/mm3 (0.0-0.8) 12/03/16 17:21 Eos # 0.2 K/mm3 (0.0-0.4) 12/03/16 17:21 Baso # 0.0 K/mm3 (0.0-0.1) 01/16/17 17:21 Seg Neutrophils % 73.9 % (40.0-70.0) H 12/03/16 17:21 Seg Neutrophils # 4.8 K/mm3 (1.8-7.7) 12/03/16 17:21 PT 14.8 Sec. (12.2-14.9) 12/11/16 08:24 INR 1.17 (0.87-1.13) H 12/11/16 08:24 APTT 35.9 Sec. (24.2-36.6) 12/03/16 17:47 Sodium 139 mmol/L (137-145) 12/03/16 17:21 Potassium 4.1 mmol/L (3.6-5.0) 12/03/16 17:21 Chloride 103.0 mmol/L (98-107) 12/03/16 17:21 Carbon Dioxide 22 mmol/L (22-30) 12/03/16 17:21 Anion Gap 18 mmol/L 12/03/16 17:21 BUN 11 mg/dL (9-20) 12/03/16 17:21 Creatinine 0.8 mg/dL (0.8-1.5) 12/03/16 17:21 Estimated GFR > 60 ml/min 12/03/16 17:21 BUN/Creatinine Ratio 13.75 % 12/03/16 17:21 Glucose 112 mg/dL (75-100) H 12/03/16 17:21 POC Glucose 109 (70-105) H 12/11/16 06:08 Lactic Acid 1.7 mmol/L (0.7-2.0) 12/03/16 17:47 Calcium 9.8 mg/dL (8.4-10.2) 12/03/16 17:21 Magnesium 1.9 mg/dL (1.7-2.3) 12/03/16 17:47 Total Bilirubin 0.4 mg/dL (0.1-1.2) 12/03/16 17:21 AST 15 units/L (5-40) 12/03/16 17:21 ALT 10 units/L (7-56) 12/03/16 17:21 Alkaline Phosphatase 88 units/L (35-129) 12/03/16 17:21 NT-Pro-B Natriuret Pep 240.3 pg/mL (0-900) 12/03/16 17:47 Total Protein 7.0 g/dL (6.3-8.2) 12/03/16 17:21 Albumin 3.8 g/dL (3.9-5) L 12/03/16 17:21 Albumin/Globulin Ratio 1.2 % 12/03/16 17:21 Lipase 62 units/L (13-60) H 12/03/16 17:21 Urine Color Yellow (Yellow) 12/04/16 12:40 Urine Turbidity Clear (Clear) 12/04/16 12:40 Urine pH 5.0 (5.0-7.0) 12/04/16 12:40 Ur Specific [place] 1.021 (1.003-1.030) 12/04/16 12:40 Urine Protein <15 mg/dl mg/dL (Negative) 12/04/16 12:40 Urine Glucose (UA) Neg mg/dL (Negative) 12/04/16 12:40 Urine Ketones Neg mg/dL (Negative) 12/04/16 12:40 Urine Blood Neg (Negative) 12/04/16 12:40 Urine Nitrite Neg (Negative) 12/04/16 12:40 Urine Bilirubin Neg (Negative) 12/04/16 12:40 Urine Urobilinogen < 2.0 mg/dL (<2.0) 12/04/16 12:40 Ur Leukocyte Esterase Neg (Negative) 12/04/16 12:40 Urine WBC (Auto) 2.0 /HPF (0.0-6.0) 12/04/16 12:40 Urine RBC (Auto) 2.0 /HPF (0.0-6.0) 12/04/16 12:40 U Epithel Cells (Auto) < 1.0 /HPF (0-13.0) 12/03/16 21:00 Urine Mucus Few /HPF 12/04/16 12:40 Urine Opiates Screen Presumptive negative 12/03/16 21:00 Urine Methadone Screen Presumptive negative 12/03/16 21:00 Ur Barbiturates Screen Presumptive negative 12/03/16 21:00 Ur Phencyclidine Scrn Presumptive negative 12/03/16 21:00 Ur Amphetamines Screen Presumptive negative 12/03/16 21:00 U Benzodiazepines Scrn Presumptive positive 12/03/16 21:00 Urine Cocaine Screen Presumptive negative 12/03/16 21:00 U Marijuana (THC) Screen Presumptive positive 12/03/16 21:00 Drugs of Abuse Note Disclamer 12/03/16 21:00 Plasma/Serum Alcohol < 0.01 gm% (0-0.07) 12/03/16 17:47 Blood Type A POSITIVE 12/06/16 16:38
[2016-12-11] MEDS: CARAFATE PO SCH ×3 (09:31→17:38)
[2016-12-11] MEDS: MORPHINE IV PRN (09:31)
[2016-12-11] MEDS: ROCEPHIN/NS 1 GM/50 ML 50 ML IV SCH (12:04)
[2016-12-11] MEDS: INDERAL PO SCH (12:04)
[2016-12-11] MEDS: ZESTRIL PO SCH (12:05)
[2016-12-11] MEDS: ARICEPT PO SCH (12:05)
--- NOTE | 2016-12-11 15:12 | Discharge Summary ---
Providers - Providers Date of Admission: 12/03/16 22:08 Date of discharge: 12/11/16 Attending physician: IRAIDA BROOKS 12/04/16 04:17 Consult to Physician [CONS] Routine Consulting Provider: SHAVON HEAD Reason For Exam: Richard's ulcer Place consult to:: Johanne Notified:: PLEASE CALL MD IN AM Was contact made?: No 12/04/16 04:20 Consult to Case Management [CONS] Routine Services Needed at Discharge: Other Notified:: cm notified 12/04/16 12:32 Speech Therapy Evaluation and Treat [CONS] Routine Reason For Exam: unable to tolerate diet 12/04/16 16:17 Occupational Therapy Evaluate and Treat [CONS] Routine Comment: Reason For Exam: deconditioning /placement Physical Therapy Evaluation and Treat [CONS] Routine Comment: Reason For Exam: deconditioning/ placement Primary care physician: [employer] Hospitalization Condition: Fair Disposition: DC/[place] SNF W [facility] CERT - Discharge Diagnoses (1) Acute UTI (urinary tract infection) Status: Acute (2) Dehydration Status: Acute (3) HTN (hypertension) Status: Chronic Qualifiers: Hypertension type: essential hypertension Qualified Code(s): I10 - Essential (primary) hypertension (4) 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 in 3- 5 days. 2.Coumadin at 5mg po daily. May decrease to 2mg po daily(his usual dose) when INR therapeutic. 3.Follow up with Dr. Hinkle, Plastic facial surgeon, in 3-5 days, to evaluate basal cell cancer of face. Follow up with: PRIMARY CARE, [Primary Care Provider] - 7 Days Forms: Warfarin Discharge Instruction Prescriptions: Warfarin [Coumadin] 5 mg PO DAILY@1700 #30 tablet
[2016-12-11] MEDS ORDERED: COUMADIN PO SCH (17:00)
[2016-12-11] MEDS: TYLENOL PO PRN (17:38)
[2016-12-11 18:04] VITALS: BP 157/77
== END 2016-12-11 19:36 | DRG 673 ==
LOC: ED 15:34 → 3A 22:08
PROVIDERS: ADMIT Family Medicine; ATTEND Internal Medicine
PROC: 0DC38ZZ Extirpation of Matter from Lower Esophagus, Via Natural or Artificial Opening Endoscopic (ICD-10-PCS; principal; 2016-12-04)
PROC: 0DC68ZZ Extirpation of Matter from Stomach, Via Natural or Artificial Opening Endoscopic (ICD-10-PCS; 2016-12-04)
PROC: 30233L1 Transfusion of Nonautologous Fresh Plasma into Peripheral Vein, Percutaneous Approach (ICD-10-PCS; 2016-12-06)
PROC: 30233K1 Transfusion of Nonautologous Frozen Plasma into Peripheral Vein, Percutaneous Approach (ICD-10-PCS; 2016-12-06)
PROC: 0HQ1XZZ Repair Face Skin, External Approach (ICD-10-PCS; 2016-12-10)
PROC: 0JB10ZZ Excision of Face Subcutaneous Tissue and Fascia, Open Approach (ICD-10-PCS; 2016-12-10)
DX: N39.0 Urinary tract infection, site not specified (principal); G93.41 Metabolic encephalopathy; R13.12 Dysphagia, oropharyngeal phase; M19.90 Unspecified osteoarthritis, unspecified site; I49.5 Sick sinus syndrome; K21.9 Gastro-esophageal reflux disease without esophagitis; J44.9 Chronic obstructive pulmonary disease, unspecified; J45.909 Unspecified asthma, uncomplicated; K26.9 Duodenal ulcer, unspecified as acute or chronic, without hemorrhage or perforation; S09.93XA Unspecified injury of face, initial encounter; I48.2 Chronic atrial fibrillation; E86.0 Dehydration; C44.319 Basal cell carcinoma of skin of other parts of face; H54.41 Blindness, right eye, normal vision left eye; F03.90 Unspecified dementia, unspecified severity, without behavioral disturbance, psychotic disturbance, mood disturbance, and anxiety; E78.5 Hyperlipidemia, unspecified; Z95.0 Presence of cardiac pacemaker; Z86.73 Personal history of transient ischemic attack (TIA), and cerebral infarction without residual deficits; Z79.01 Long term (current) use of anticoagulants; Z79.899 Other long term (current) drug therapy; Z88.6 Allergy status to analgesic agent; Z88.0 Allergy status to penicillin; Z87.891 Personal history of nicotine dependence
CPT/HCPCS: 36415; 70450; 71010; 80053; 80307; 80320; 81001; 82140; 82962; 83690; 83735; 83880; 85025; 85027; 85610; 85730; 86900; 86901; 87086; 88305; 93005; 93010; 96374; 96375; G0480; G8978-GP; G8979-GP; G8987-GO; G8988-GO; G8996-GN; G8997-GN; G8998-GN; J0330; J0696; J2270; J2405; J2704; J3010; J3430; J7030; J7040; J7042; P9017

== ENCOUNTER 2017-08-19 14:10 | Emergency (ER) | payer MEDICARE ==
[2017-08-19 15:37] LABS: Basophils % (Auto) 0.3 % (0.0-1.8); Eosinophils % (Auto) 0.2 % (0.0-4.3); Hematocrit 40.1 % (35.5-45.6); Hemoglobin 12.8 gm/dl (11.8-15.2); Mean Corpuscular HGB Conc 32 % (32-34); Mean Corpuscular Volume 79 fl (84-94); Platelet Count 264 K/mm3 (140-440); Red Blood Count 5.11 M/mm3 (3.65-5.03); Red Cell Distribution Width 16.1 % (13.2-15.2); White Blood Count 10.9 K/mm3 (4.5-11.0)
[2017-08-19 15:43] LABS: Anion Gap 21 mmol/L; BUN/Creatinine Ratio 21; Blood Urea Nitrogen 17 mg/dL (9-20); Calcium 9.6 mg/dL (8.4-10.2); Carbon Dioxide 23 mmol/L (22-30); Chloride 99.8 mmol/L (98-107); Glucose 128 mg/dL (75-100); Potassium 4.2 mmol/L (3.6-5.0); Sodium 140 mmol/L (137-145)
[2017-08-19 15:52] LABS: Mean Corpuscular Hemoglobin 25 pg (28-32)
--- NOTE | 2017-08-19 15:57 | Emergency Department Report ---
Chief Complaint: Chest Pain Stated Complaint: CP Time Seen by Provider: 08/19/17 15:52 - HPI History of Present Illness: Patient airport midsternal chest pain started yesterday. He is here with his daughter. Patient has a history of asthma, COPD, arthritis, acid reflux, headache and migraine, EF of 55-60% per echo on 6:15., Hypertension. Patient' s has ventricular pacemaker for sick sinus syndrome. He has a history of neuropathy. Patient daughter reported that patient has been feeling weak and tired. He's had similar chest pain before. Pain is 8 out of 10. 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 - ROS Review of Systems: All systems are negative unless stated in HPI above - Exam Vital Signs: Vital Signs 08/19/17 15:05 Temperature 98 F Pulse Rate 102 H Respiratory 20 Rate Blood Pressure 151/94 O2 Sat by Pulse 100 Oximetry Physical Exam: Gen.: This is a 82-year-old male appears to fail and in no acute distress. Nontoxic in appearance. Cardiovascular: S1-S2, ventricular paced rhythm at 92 Extremity: Patient has trace swelling to bilateral lower extremity right greater than left. Palpable pedal pulses with MSE screening note: Focused history and physical exam performed. Due to findings the following was ordered:[facility] ED Medical Decision Making - Lab Data Result diagrams: 08/19/17 15:11 08/19/17 15:11 - Medical Decision Making MDM: Patient screened by provider in triage area. Appropriate protocol initiated and patient to be seen in main ED by Dr. HUNG Disposition for MSE Condition: Stable
--- NOTE | 2017-08-19 16:26 | XRay Report ---
Chest 2 views: Compared to 06/05/17. History: Shortness of breath. Findings: Borderline cardiomegaly. Trachea is midline. Stable pacemaker. No consolidation, pneumothorax or pleural effusion. No significant interval change. Impression: No significant interval change.
[2017-08-19] MEDS ORDERED: ZOFRAN IV ONE (16:46)
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
[2017-08-19 18:24] LABS: INR 1.09 (0.87-1.13)
[2017-08-19 18:25] LABS: Partial Thromboplastin Time 35.4 Sec. (24.2-36.6)
[2017-08-19] MEDS ORDERED: WATER FOR IRRIG STERILE IR ONE (18:45)
[2017-08-19] MEDS ORDERED: NACL 0.9% 1000 ML 1,000 ML ONE (18:45)
[2017-08-19] MEDS ORDERED: DIPRIVAN 10 MG/ML IV ONE (18:53)
--- NOTE | 2017-08-19 18:56 | Gastroenterology Consultation ---
History of Present Illness - Reason for Consult Consult date: 08/19/17 esophageal food impaction Requesting physician: CHRISTIE MOSHER - History of Present Illness The patient is an 82 year man for whom consultation was requested by the ER physician for a food impaction of the esophagus. 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 Washington Dowell. The patient has had a slow recurrence of his dysphagia to solid food for several months and now reports that after eating a chicken nugget 2 days ago he became unable to tolerate any further liquids or solids. He reports a good appetite generally and no history of weight loss. 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) Social history: no significant social history Family history: no significant family history Medications and Allergies Allergies Allergy/AdvReac Type Severity Reaction Status Date / Time aspirin AdvReac UPSET Verified 03/31/15 16:24 STOMACH ibuprofen AdvReac UPSET Verified 03/31/15 16:24 STOMACH Home Medications Medication Instructions Recorded Confirmed Last Taken Type Diazepam Tab [Valium] 2 mg PO TID PRN 05/10/16 06/05/17 1 Day Ago History 2 Donepezil [Aricept] 10 mg PO QDAY 05/10/16 06/05/17 1 Day Ago History 10 Lisinopril [Zestril TAB] 10 mg PO QDAY 05/10/16 06/05/17 1 Day Ago History 10 mg Antacid [Alum-Mag Hydrox-Simeth 30 ml PO Q6HR PRN #1 bottle 05/19/16 06/05/17 Unknown Rx [id number]] Diazepam [Valium] 10 mg PO QHS PRN MDD 10 09/17/16 09/17/16 09/16/16 History Donepezil [Aricept] 10 mg PO QDAY 09/17/16 09/17/16 09/16/16 History Gabapentin [Neurontin] 100 mg PO Q8HR 09/17/16 09/17/16 09/16/16 History Lisinopril [Zestril TAB] 5 mg PO QDAY 09/17/16 09/17/16 09/17/16 History Sucralfate 1 gm PO 09/17/16 09/16/16 History Temazepam [Restoril] 15 mg PO QHS PRN 10/31/16 10/31/16 10/30/16 History Warfarin [Coumadin] 2 mg PO QDAY 09/17/16 09/17/16 09/10/16 History traZODone [Desyrel] 09/17/16 09/16/16 History traZODone [Desyrel] 50 mg PO QHS 09/17/16 09/17/16 09/16/16 History Buspar 5 mg PO BID 06/05/17 06/05/17 Unknown History Coreg 6.25 mg PO DAILY 06/05/17 06/05/17 Unknown History Cymbalta 30 mg PO DAILY 06/05/17 06/05/17 Unknown History Eliquis 5 mg PO BID 06/05/17 06/05/17 Unknown History Folic Acid 1 mg PO DAILY 06/05/17 06/05/17 Unknown History Gabapentin 400 mg PO DAILY 06/05/17 06/05/17 Unknown History Mirtazapine 15 mg PO HS 06/05/17 06/05/17 1 Day Ago History 15 Omeprazole 20 mg PO DAILY 06/05/17 06/05/17 1 Day Ago History 20 Senna 17.2 mg PO PRN PRN 06/05/17 06/05/17 Unknown History Pantoprazole [Protonix] 40 mg PO QAM #30 tablet 08/19/17 Unknown Rx Review of Systems - Review of Systems Constitutional: no weight loss, no weight gain, no anorexia Eyes: other (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), no change in vision Ears, Nose, Throat: difficulty swallowing, no epistaxis, no painful swallowing Breasts: deferred Cardiovascular: no chest pain, no rapid/irregular heart beat, no shortness of breath Respiratory: no cough, no shortness of breath, no wheezing Gastrointestinal: no abdominal pain, no nausea, no vomiting, no constipation, no change in bowel habits, no BRBPR, no melena, no hematochezia Rectal: no pain, no bleeding Male Genitourinary: deferred Musculoskeletal: joint pain, no gait dysfunction, no muscle pain Integumentary: no rash, no pruritis, no jaundice Neurological: no head injury, no paralysis, no weakness Psychiatric: no anxiety, no memory loss Endocrine: no cold intolerance, no heat intolerance Hematologic/Lymphatic: no easy bruising, no easy bleeding Allergic/Immunologic: no wheezing Exam - Constitutional Vital Signs: Temp Pulse Resp BP Pulse Ox 98 F 102 H 20 151/94 100 08/19/17 15:05 08/19/17 15:05 08/19/17 15:05 08/19/17 15:05 08/19/17 15:05 General appearance: no acute distress, well-nourished - EENT Eyes: other (right sided glass eye) ENT: hearing intact, clear oral mucosa, poor dentition - Neck Neck: supple, normal ROM, no masses or JVD - Respiratory Respiratory effort: normal Respiratory: bilateral: CTA - Breasts Breasts: deferred - Cardiovascular Rhythm: regular Heart Sounds: Present: S1 & S2. Absent: gallop, rub Extremities: pulses intact, No edema, normal color, Full ROM - Gastrointestinal General gastrointestinal: Present: soft, non-tender, non-distended, normal bowel sounds. Absent: hepatomegaly, splenomegaly, mass Rectal Exam: deferred - Genitourinary Male Genitourinary: deferred - Integumentary Integumentary: Present: clear, warm, dry - Neurologic Neurological: alert and oriented x3 - Psychiatric Psychiatric: appropriate mood/affect, intact judgment & insight, cooperative - Labs CBC & Chem 7: 08/19/17 15:11 08/19/17 15:11 Lab Results: Laboratory Results - last 24 hr 08/19/17 08/19/17 08/19/17 15:11 15:11 16:05 WBC 10.9 RBC 5.11 H Hgb 12.8 Hct 40.1 MCV 79 L MCH 25 L MCHC 32 RDW 16.1 H Plt Count 264 Lymph % (Auto) 6.3 L [place] % (Auto) 4.6 Eos % (Auto) 0.2 Baso % (Auto) 0.3 Lymph # 0.7 L [place] # 0.5 Eos # 0.0 Baso # 0.0 Seg Neutrophils % 88.6 H Seg Neutrophils # 9.7 H PT INR APTT Sodium 140 Potassium 4.2 Chloride 99.8 Carbon Dioxide 23 Anion Gap 21 BUN 17 Creatinine 0.8 Estimated GFR > 60 BUN/Creatinine Ratio 21 Glucose 128 H Calcium 9.6 Troponin T < 0.010 NT-Pro-B Natriuret Pep 447.1 08/19/17 08/19/17 17:05 17:05 WBC RBC Hgb Hct MCV MCH MCHC RDW Plt Count Lymph % (Auto) [place] % (Auto) Eos % (Auto) Baso % (Auto) Lymph # [place] # Eos # Baso # Seg Neutrophils % Seg Neutrophils # PT 14.7 INR 1.09 APTT 35.4 Sodium Potassium Chloride Carbon Dioxide Anion Gap BUN Creatinine Estimated GFR BUN/Creatinine Ratio Glucose Calcium Troponin T < 0.010 NT-Pro-B Natriuret Pep Assessment and Plan - Patient Problems (1) Esophageal obstruction due to food impaction Status: Acute Plan to address problem: Emergent endoscopy for food impaction is planned. Dilation will need to be deferred to outpatient study. Patient will need PPI therapy and office follow up after planned endoscopy tonight. (2) GERD (gastroesophageal reflux disease) Status: Chronic Qualifiers: Esophagitis presence: E (3) HTN (hypertension) Status: Chronic Qualifiers: Hypertension type: essential hypertension Qualified Code(s): I10 - Essential (primary) hypertension
--- NOTE | 2017-08-19 19:27 | Operative Report ---
Operative Report Operative Report: Date of procedure: 08/19/2017 Procedure: Esophagogastroduodenoscopy with removal of food impaction Preprocedure diagnosis: Meat impaction of the esophagus Post procedure diagnosis: Meat impaction of the esophagus with underlying peptic stricture. Large hiatus hernia. Endoscopist: Dr. Dean Anesthesia: Monitored anesthesia care per anesthesia department Medications: Propofol per anesthesia Estimated blood loss: 0 After careful discussion of the nature and purpose of the procedure as well as details the technique risks benefits and alternatives consent was obtained. The patient was placed in the left lateral decubitus position and medicated per anesthesia. The tip of the [employer] EQ 570 video scope was passed per orum under direct vision into the esophagus. There was a large amount of meat present in the distal esophagus occluding the lumen initially. The Causey net basket was utilized to remove some of the particles of food followed by gently advancing the scope around the food particle through a peptic stricture and into the stomach. The scope was withdrawn back into the esophagus and the esophagus cleared by gently nudging the food particles into the stomach through the lumen under direct observation. The esophagus was rinsed clear with air and appeared to have no further food substances present. The scope was then advanced into this stomach and descending duodenum. The descending duodenum the duodenal bulb and pylorus were symmetrical and normal. The scope was withdrawn into the stomach and the stomach then gently insufflated with air. The antrum was normal. The stomach was further insufflated and the scope was then retroflexed and partially withdrawn. The cardia, fundus, and body of the stomach were within normal limits and easily distensible.The scope was then withdrawn in the forward position. The esophagogastric junction was at 38 cm. A benign shelflike stricture was present at the esophagogastric junction. There is no mass effect. Mild ulceration was present. The esophageal body was normal throughout. The procedure was was well tolerated and the patient was observed in recovery. Impressions: Food impaction of the esophagus. The impaction was cleared. Peptic stricture of the distal esophagus. Large hiatus hernia. Plan: Restricted diet as discussed with the patient. Acid suppression therapy with pantoprazole 40 mg daily. Repeat endoscopy for dilation in a few weeks. Electronically signed: Cecilio Dean MD
[2017-08-19 20:12] VITALS: BP 111/49
== END 2017-08-19 21:00 | disposition home or self-care (01) ==
LOC: ED 14:10
DX: K22.2 Esophageal obstruction (principal); T18.128A Food in esophagus causing other injury, initial encounter; X58.XXXA Exposure to other specified factors, initial encounter; Y93.9 Activity, unspecified; Y92.9 Unspecified place or not applicable; Y99.9 Unspecified external cause status; R13.10 Dysphagia, unspecified; I10 Essential (primary) hypertension; K21.9 Gastro-esophageal reflux disease without esophagitis; G43.909 Migraine, unspecified, not intractable, without status migrainosus; J44.9 Chronic obstructive pulmonary disease, unspecified
CPT/HCPCS: 36415; 43247; 71020; 80048; 83880; 84484; 85025; 85610; 85730; 93005; 93010; 96374; 99284; J2405; J2704; J7030

== ENCOUNTER 2017-11-03 11:51 | Inpatient (IN) | payer MEDICARE ==
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
[2017-11-03 12:42] LABS: Basophils % (Auto) 0.9 % (0.0-1.8); Eosinophils % (Auto) 4.6 % (0.0-4.3); Hematocrit 34.8 % (35.5-45.6); Hemoglobin 11.3 gm/dl (11.8-15.2); Mean Corpuscular HGB Conc 33 % (32-34); Mean Corpuscular Volume 77 fl (84-94); Platelet Count 243 K/mm3 (140-440); Red Blood Count 4.49 M/mm3 (3.65-5.03); Red Cell Distribution Width 17.6 % (13.2-15.2); White Blood Count 4.8 K/mm3 (4.5-11.0)
[2017-11-03 12:49] LABS: Mean Corpuscular Hemoglobin 25 pg (28-32)
[2017-11-03 12:53] LABS: INR 0.98 (0.87-1.13); Partial Thromboplastin Time 32.3 Sec. (24.2-36.6)
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
[2017-11-03 13:00] LABS: Anion Gap 15 mmol/L; BUN/Creatinine Ratio 19; Blood Urea Nitrogen 13 mg/dL (9-20); Calcium 8.8 mg/dL (8.4-10.2); Carbon Dioxide 24 mmol/L (22-30); Chloride 102.8 mmol/L (98-107); Glucose 141 mg/dL (75-100); Sodium 138 mmol/L (137-145)
[2017-11-03] MEDS ORDERED: MORPHINE IV ONE (13:44)
[2017-11-03] MEDS ORDERED: ZOFRAN IV ONE (13:44)
[2017-11-03] MEDS ORDERED: NACL 0.9% 500 ML IR ONE (15:39)
[2017-11-03] MEDS ORDERED: NORCO 5/325 PO ONE (16:42)
[2017-11-03] MEDS ORDERED: NORCO 5/325 ONE (16:48)
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
[2017-11-03] MEDS ORDERED: TYLENOL PO PRN (17:51)
[2017-11-03] MEDS ORDERED: DULCOLAX PR PRN (17:51)
[2017-11-03] MEDS ORDERED: ZOFRAN IV PRN (17:51)
[2017-11-03] MEDS ORDERED: MILK OF MAGNESIA PO PRN (17:51)
[2017-11-03] MEDS ORDERED: NON-FORMULARY (Omeprazole [Omeprazole] 40 MG) PO SCH (18:00)
[2017-11-03] MEDS: NORVASC PO SCH (18:57)
[2017-11-03] MEDS: ZESTRIL PO SCH (18:58)
[2017-11-03] MEDS: PROTONIX PO SCH (18:58)
[2017-11-03 19:20] LABS: Creatine Kinase MB 2.4 ng/mL (0.0-4.0)
[2017-11-03 19:22] LABS: Creatine Kinase 73 units/L (55-170)
[2017-11-03] MEDS: ELIQUIS PO SCH (21:23)
[2017-11-03] MEDS: NORCO 5/325 PO PRN (21:23)
[2017-11-04] MEDS: BUSPAR PO SCH ×3 (00:25→22:00)
[2017-11-04 01:16] LABS: Creatine Kinase MB 2.4 ng/mL (0.0-4.0)
[2017-11-04 01:17] LABS: Creatine Kinase 76 units/L (55-170)
[2017-11-04] MEDS: NORCO 5/325 PO PRN (05:09)
[2017-11-04 07:17] LABS: Basophils % (Auto) 0.9 % (0.0-1.8); Eosinophils % (Auto) 5.9 % (0.0-4.3); Hematocrit 35.3 % (35.5-45.6); Hemoglobin 11.1 gm/dl (11.8-15.2); Mean Corpuscular HGB Conc 32 % (32-34); Mean Corpuscular Volume 77 fl (84-94); Platelet Count 229 K/mm3 (140-440); Red Cell Distribution Width 16.8 % (13.2-15.2); White Blood Count 4.6 K/mm3 (4.5-11.0)
[2017-11-04 07:19] LABS: Creatine Kinase MB 2.2 ng/mL (0.0-4.0)
[2017-11-04 07:20] LABS: Alanine Aminotransferase 10 units/L (7-56); Albumin 3.6 g/dL (3.9-5); Albumin/Globulin Ratio 1.1 %; Alkaline Phosphatase 95 units/L (35-129); Anion Gap 17 mmol/L; BUN/Creatinine Ratio 20; Blood Urea Nitrogen 14 mg/dL (9-20); Calcium 9.2 mg/dL (8.4-10.2); Carbon Dioxide 24 mmol/L (22-30); Chloride 102.9 mmol/L (98-107); Glucose 116 mg/dL (75-100); Potassium 4.1 mmol/L (3.6-5.0); Sodium 140 mmol/L (137-145)
[2017-11-04 07:26] LABS: Mean Corpuscular Hemoglobin 24 pg (28-32)
[2017-11-04] MEDS ORDERED: LEXISCAN IV ONE ×3 (09:00→10:22)
[2017-11-04] MEDS: MORPHINE IV PRN ×2 (12:52→18:31)
[2017-11-04] MEDS: ZESTRIL PO SCH (12:53)
[2017-11-04] MEDS: NORVASC PO SCH (12:53)
[2017-11-04] MEDS: PROTONIX PO SCH (12:53)
--- NOTE | 2017-11-04 18:30 | Progress Note ---
Assessment and Plan - Patient Problems (1) Chest pain in adult Current Visit: Yes Status: Acute Plan to address problem: Serial CE's normal. Lexiscan test done today. report pending (2) GERD (gastroesophageal reflux disease) Current Visit: No Status: Chronic Qualifiers: Esophagitis presence: with esophagitis Qualified Code(s): K21.0 - Gastro- esophageal reflux disease with esophagitis Plan to address problem: Cont PPI's (3) HTN (hypertension) Current Visit: No Status: Chronic Qualifiers: Hypertension type: essential hypertension Qualified Code(s): I10 - Essential (primary) hypertension Plan to address problem: Cont Amlodipine and Lisinopril (4) Pacemaker Current Visit: No Status: Chronic Plan to address problem: Cont Eliquis (5) DVT prophylaxis Current Visit: No Status: Acute Plan to address problem: On Lovenox Subjective Date of service: 11/04/17 Principal diagnosis: chest pain Interval history: Still having chest pain in the right rib cage. Aggravated by movement Objective - Constitutional Vitals: Vital Signs - 12hr 11/04/17 11/04/17 11/04/17 09:35 10:54 10:55 Temperature Pulse Rate 88 103 H 105 H Respiratory Rate Blood Pressure 142/89 154/84 156/91 O2 Sat by Pulse Oximetry 11/04/17 11/04/17 11/04/17 10:56 10:57 10:58 Temperature Pulse Rate 105 H 105 H 105 H Respiratory Rate Blood Pressure 119/73 140/90 167/100 O2 Sat by Pulse Oximetry 11/04/17 11/04/17 10:59 12:39 Temperature 98.0 F Pulse Rate 108 H 87 Respiratory 20 Rate Blood Pressure 162/93 139/70 O2 Sat by Pulse 95 Oximetry General appearance: Present: no acute distress, well-nourished - EENT Eyes: PERRL, EOM intact - Neck Neck: supple, normal ROM - Respiratory Respiratory effort: normal - Cardiovascular Rhythm: regular Heart Sounds: Present: S1 & S2. Absent: gallop, rub Extremities: pulses intact, No edema, normal color, Full ROM - Gastrointestinal General gastrointestinal: Present: soft, non-tender, non-distended, normal bowel sounds - Integumentary Integumentary: clear, warm, dry - Musculoskeletal Musculoskeletal: 1, strength equal bilaterally - Neurologic Neurologic: moves all extremities - Psychiatric Psychiatric: appropriate mood/affect - Labs CBC & Chem 7: 11/04/17 06:07 11/04/17 06:07 Labs: Abnormal lab results 11/04/17 11/04/17 11/04/17 Range/Units 06:07 06:07 12:48 Hgb 11.1 L (11.8-15.2) gm/dl Hct 35.3 L (35.5-45.6) % MCV 77 L (84-94) fl MCH 24 L (28-32) pg RDW 16.8 H (13.2-15.2) % [place] % (Auto) 8.0 H (0.0-7.3) % Eos % (Auto) 5.9 H (0.0-4.3) % Creatinine 0.7 L (0.8-1.5) mg/dL Glucose 116 H (75-100) mg/dL POC Glucose 141 H (70-105) Albumin 3.6 L (3.9-5) g/dL
[2017-11-04] MEDS: ELIQUIS PO SCH (22:00)
[2017-11-04] MEDS: AMBIEN PO PRN (23:20)
[2017-11-04] MEDS: PERCOCET 5/325 PO PRN (23:20)
--- NOTE | 2017-11-05 02:04 | Treadmill Report ---
ORDERING PHYSICIAN: Dr. Kanika Estrada. INDICATION: Fatigue and weakness. FINDINGS: There is no scintigraphic evidence of myocardial ischemia. There is evidence of decreased counts noted both on the stress and rest imaging involving the inferoseptal wall and this is consistent with a fixed defect. On gated imaging, there is normal wall motion and wall thickening with an ejection fraction measured at 69%. Also, there is evidence of significant motion artifact noted on both rest and stress imaging, predominantly more on the stress imaging as well as evidence of increased liver and gut uptake on stress imaging. IMPRESSION: 1. Probably normal myocardial perfusion scan revealing a predominantly fixed moderate sized inferoseptal wall defect. 2. No scintigraphic evidence of myocardial ischemia. 3. Significant motion artifact noted both on the rest and stress images, predominantly more on the stress images as well as significant adjacent liver/bowel uptake. 4. This is a low risk myocardial perfusion scan associated with a 1 year cardiovascular mortality of less than 1%. JOB# [id number] MOHAN/KAREL
[2017-11-05] MEDS: ZESTRIL PO SCH (10:40)
[2017-11-05] MEDS: PROTONIX PO SCH (10:40)
[2017-11-05] MEDS: NORVASC PO SCH (10:40)
[2017-11-05] MEDS: BUSPAR PO SCH ×2 (10:40→21:40)
[2017-11-05] MEDS: PERCOCET 5/325 PO PRN ×2 (10:41→21:43)
--- NOTE | 2017-11-05 11:50 | Discharge Summary ---
Providers - Providers Date of Admission: 11/03/17 15:08 Attending physician: CULLEN MILES MD Primary care physician: IRAIDA FISHER Hospitalization Condition: Stable Hospital course: 82M with pmh of CAD, GERD, GERD, HTN, sp PM, who presented with chest pain, back pain and neuropathy He went on to have ACS ruled out via negative Octavio. he also went on to have stress test which was negative. His chronic pain from OA and neuropathy was rx with analgesics. He received PT for debility and he was improving. He was then transfered to subacute rehab for poor gait and high fall risk DC diagnosis Chest pain due to GERD GERD HTN Sp PM OA neuropathy Debility Disposition: DC/TX-03 SNF [facility] Time spent for discharge: 44 minutes Core Measure Documentation - Palliative Care Palliative Care/ Comfort Measures: Not Applicable - Core Measures Any of the following diagnoses?: none Exam - Constitutional Vitals: Temp Pulse Resp BP Pulse Ox 97.9 F 86 20 138/96 97 11/05/17 09:04 11/05/17 09:04 11/05/17 09:04 11/05/17 09:04 11/05/17 09:04 General appearance: Present: no acute distress, well-nourished - EENT Eyes: Present: PERRL ENT: hearing intact, clear oral mucosa - Neck Neck: Present: supple, normal ROM - Respiratory Respiratory effort: normal Respiratory: bilateral: CTA - Cardiovascular Heart Sounds: Present: S1 & S2. Absent: rub, click - Extremities Extremities: pulses symmetrical, No edema Peripheral Pulses: within normal limits - Abdominal General gastrointestinal: Present: soft, non-tender, non-distended, normal bowel sounds Male genitourinary: Present: normal - Integumentary Integumentary: Present: clear, warm, dry - Musculoskeletal Musculoskeletal: gait normal, strength equal bilaterally - Psychiatric Psychiatric: appropriate mood/affect, intact judgment & insight - Neurologic Neurologic: CNII-XII intact, moves all extremities Plan Follow up with: PRIMARY MD KAYLAN [Referring] - 3-5 Days IRAIDA RAUSCH MD [Staff Physician] - 7 Days Prescriptions: HYDROcodone/APAP 5-325 [[place] 5-325 mg TAB] 1 each PO Q6HR PRN #14 tablet PRN Reason: Pain
[2017-11-05] MEDS: TYLENOL PO SCH (17:14)
[2017-11-05] MEDS: NEURONTIN PO SCH ×2 (17:14→21:40)
[2017-11-05] MEDS: ELIQUIS PO SCH (21:40)
[2017-11-05] MEDS: REMERON PO SCH (21:41)
[2017-11-06] MEDS: NEURONTIN PO SCH ×3 (06:00→22:47)
[2017-11-06] MEDS: TYLENOL PO SCH ×3 (08:00→18:44)
[2017-11-06] MEDS: NORCO 5/325 PO PRN (09:24)
[2017-11-06] MEDS: ZESTRIL PO SCH (09:25)
[2017-11-06] MEDS: PROTONIX PO SCH (09:25)
[2017-11-06] MEDS: BUSPAR PO SCH ×2 (09:25→22:46)
[2017-11-06] MEDS: NORVASC PO SCH (09:26)
--- NOTE | 2017-11-06 11:36 | Progress Note ---
Assessment and Plan Assessment and plan: 82M with pmh of CAD, afib, mild systolic Dysfunction, who presents with chest pain (1) Chest pain in adult most likely due to GERD, question compliance with PPI at home -Stress test negative, no further workup indicated, now resolved (2) GERD (gastroesophageal reflux disease) Cont PPI's (3) HTN (hypertension) Cont Amlodipine and Lisinopril (4) Afib sp Pacemaker with hypercoaguable state Cont Eliquis (5) DVT prophylaxis fully anticoagulated Debility -continue PT, awaiting SNF placement History Interval history: Denies CP, SOB, abdominal pain or fever admits generalized weakness and unsteady gait Hospitalist Physical - Physical exam Narrative exam: General appearance: Present: no acute distress, well-nourished - EENT Eyes: Present: PERRL ENT: hearing intact - Neck Neck: Present: supple - Respiratory Respiratory effort: normal Respiratory: bilateral: CTA - Cardiovascular Heart Sounds: Present: S1 & S2 - Extremities Extremities: no ischemia Peripheral Pulses: within normal limits - Abdominal General gastrointestinal: soft, non-tender - Integumentary Integumentary: Present: clear, warm - Psychiatric Psychiatric: appropriate mood/affect - Neurologic Neurologic: CNII-XII intact, moves all extremities - Constitutional Vitals: Temp Pulse Resp BP Pulse Ox 98.7 F 71 18 136/67 95 11/06/17 09:47 11/06/17 09:47 11/06/17 09:47 11/06/17 09:47 11/06/17 09:47 General appearance: Present: no acute distress, well-nourished - Allied Health Allied health notes reviewed: PT Results - Labs CBC & Chem 7: 11/04/17 06:07 11/04/17 06:07 Labs: Laboratory Last Values WBC 4.6 K/mm3 (4.5-11.0) 11/04/17 06:07 RBC 4.60 M/mm3 (3.65-5.03) 11/04/17 06:07 Hgb 11.1 gm/dl (11.8-15.2) L 11/04/17 06:07 Hct 35.3 % (35.5-45.6) L 11/04/17 06:07 MCV 77 fl (84-94) L 11/04/17 06:07 MCH 24 pg (28-32) L 11/04/17 06:07 MCHC 32 % (32-34) 11/04/17 06:07 RDW 16.8 % (13.2-15.2) H 11/04/17 06:07 Plt Count 229 K/mm3 (140-440) 11/04/17 06:07 Lymph % (Auto) 28.9 % (13.4-35.0) 11/04/17 06:07 [place] % (Auto) 8.0 % (0.0-7.3) H 11/04/17 06:07 Eos % (Auto) 5.9 % (0.0-4.3) H 11/04/17 06:07 Baso % (Auto) 0.9 % (0.0-1.8) 11/04/17 06:07 Lymph # 1.3 K/mm3 (1.2-5.4) 11/04/17 06:07 [place] # 0.4 K/mm3 (0.0-0.8) 11/04/17 06:07 Eos # 0.3 K/mm3 (0.0-0.4) 11/04/17 06:07 Baso # 0.0 K/mm3 (0.0-0.1) 11/04/17 06:07 Seg Neutrophils % 56.3 % (40.0-70.0) 11/04/17 06:07 Seg Neutrophils # 2.6 K/mm3 (1.8-7.7) 11/04/17 06:07 PT 13.5 Sec. (12.2-14.9) 11/03/17 12:11 INR 0.98 (0.87-1.13) 11/03/17 12:11 APTT 32.3 Sec. (24.2-36.6) 11/03/17 12:11 Sodium 140 mmol/L (137-145) 11/04/17 06:07 Potassium 4.1 mmol/L (3.6-5.0) 11/04/17 06:07 Chloride 102.9 mmol/L (98-107) 11/04/17 06:07 Carbon Dioxide 24 mmol/L (22-30) 11/04/17 06:07 Anion Gap 17 mmol/L 11/04/17 06:07 BUN 14 mg/dL (9-20) 11/04/17 06:07 Creatinine 0.7 mg/dL (0.8-1.5) L 11/04/17 06:07 Estimated GFR > 60 ml/min 11/04/17 06:07 BUN/Creatinine Ratio 20 % 11/04/17 06:07 Glucose 116 mg/dL (75-100) H 11/04/17 06:07 POC Glucose 109 (70-105) H 11/04/17 21:32 Calcium 9.2 mg/dL (8.4-10.2) 11/04/17 06:07 Total Bilirubin 0.30 mg/dL (0.1-1.2) 11/04/17 06:07 AST 14 units/L (5-40) 11/04/17 06:07 ALT 10 units/L (7-56) 11/04/17 06:07 Alkaline Phosphatase 95 units/L (35-129) 11/04/17 06:07 Total Creatine Kinase 72 units/L (55-170) 11/04/17 06:07 CK-MB (CK-2) 2.2 ng/mL (0.0-4.0) 11/04/17 06:07 CK-MB (CK-2) Rel Index 3.0 (0-4) 11/04/17 06:07 Troponin T 0.012 ng/mL (0.00-0.029) 11/04/17 06:07 NT-Pro-B Natriuret Pep 166.3 pg/mL (0-900) 11/03/17 12:27 Total Protein 7.0 g/dL (6.3-8.2) 11/04/17 06:07 Albumin 3.6 g/dL (3.9-5) L 11/04/17 06:07 Albumin/Globulin Ratio 1.1 % 11/04/17 06:07
[2017-11-06] MEDS: PERCOCET 5/325 PO PRN ×2 (14:39→22:55)
[2017-11-06] MEDS: ELIQUIS PO SCH (22:46)
[2017-11-06] MEDS: REMERON PO SCH (22:47)
[2017-11-07] MEDS: TYLENOL PO SCH ×3 (00:01→17:28)
[2017-11-07] MEDS: NEURONTIN PO SCH ×3 (06:23→21:48)
[2017-11-07] MEDS: PERCOCET 5/325 PO PRN ×2 (06:25→20:30)
[2017-11-07] MEDS: PROTONIX PO SCH (09:39)
[2017-11-07] MEDS: ZESTRIL PO SCH (09:40)
[2017-11-07] MEDS: NORVASC PO SCH (09:41)
[2017-11-07] MEDS: BUSPAR PO SCH ×2 (09:54→21:48)
--- NOTE | 2017-11-07 13:16 | Progress Note ---
Assessment and Plan Assessment and plan: 82M with pmh of CAD, afib, mild systolic Dysfunction, who presents with chest pain (1) Chest pain in adult most likely due to GERD, question compliance with PPI at home -Stress test negative, no further workup indicated, now resolved (2) GERD (gastroesophageal reflux disease) Cont PPI's (3) HTN (hypertension) Cont Amlodipine and Lisinopril (4) Afib sp Pacemaker with hypercoaguable state Cont Eliquis (5) DVT prophylaxis fully anticoagulated OA and neuropathy continue pain meds and gabapentin Debility -continue PT, awaiting SNF placement History Interval history: Denies CP, SOB, abdominal pain or fever admits generalized weakness and unsteady gait Hospitalist Physical - Physical exam Narrative exam: General appearance: Present: no acute distress, well-nourished - EENT Eyes: Present: PERRL ENT: hearing intact - Neck Neck: Present: supple - Respiratory Respiratory effort: normal Respiratory: bilateral: CTA - Cardiovascular Heart Sounds: Present: S1 & S2 - Extremities Extremities: no ischemia Peripheral Pulses: within normal limits - Abdominal General gastrointestinal: soft, non-tender - Integumentary Integumentary: Present: clear, warm - Psychiatric Psychiatric: appropriate mood/affect - Neurologic Neurologic: CNII-XII intact, moves all extremities - Constitutional Vitals: Temp Pulse Resp BP Pulse Ox 97.8 F 64 18 126/71 95 11/07/17 07:55 11/07/17 10:00 11/07/17 10:00 11/07/17 09:41 11/07/17 10:00 General appearance: Present: no acute distress, well-nourished Results - Labs CBC & Chem 7: 11/04/17 06:07 11/04/17 06:07 Labs: Laboratory Last Values WBC 4.6 K/mm3 (4.5-11.0) 11/04/17 06:07 RBC 4.60 M/mm3 (3.65-5.03) 11/04/17 06:07 Hgb 11.1 gm/dl (11.8-15.2) L 11/04/17 06:07 Hct 35.3 % (35.5-45.6) L 11/04/17 06:07 MCV 77 fl (84-94) L 11/04/17 06:07 MCH 24 pg (28-32) L 11/04/17 06:07 MCHC 32 % (32-34) 11/04/17 06:07 RDW 16.8 % (13.2-15.2) H 11/04/17 06:07 Plt Count 229 K/mm3 (140-440) 11/04/17 06:07 Lymph % (Auto) 28.9 % (13.4-35.0) 11/04/17 06:07 [place] % (Auto) 8.0 % (0.0-7.3) H 11/04/17 06:07 Eos % (Auto) 5.9 % (0.0-4.3) H 11/04/17 06:07 Baso % (Auto) 0.9 % (0.0-1.8) 11/04/17 06:07 Lymph # 1.3 K/mm3 (1.2-5.4) 11/04/17 06:07 [place] # 0.4 K/mm3 (0.0-0.8) 11/04/17 06:07 Eos # 0.3 K/mm3 (0.0-0.4) 11/04/17 06:07 Baso # 0.0 K/mm3 (0.0-0.1) 11/04/17 06:07 Seg Neutrophils % 56.3 % (40.0-70.0) 11/04/17 06:07 Seg Neutrophils # 2.6 K/mm3 (1.8-7.7) 11/04/17 06:07 PT 13.5 Sec. (12.2-14.9) 11/03/17 12:11 INR 0.98 (0.87-1.13) 11/03/17 12:11 APTT 32.3 Sec. (24.2-36.6) 11/03/17 12:11 Sodium 140 mmol/L (137-145) 11/04/17 06:07 Potassium 4.1 mmol/L (3.6-5.0) 11/04/17 06:07 Chloride 102.9 mmol/L (98-107) 11/04/17 06:07 Carbon Dioxide 24 mmol/L (22-30) 11/04/17 06:07 Anion Gap 17 mmol/L 11/04/17 06:07 BUN 14 mg/dL (9-20) 11/04/17 06:07 Creatinine 0.7 mg/dL (0.8-1.5) L 11/04/17 06:07 Estimated GFR > 60 ml/min 11/04/17 06:07 BUN/Creatinine Ratio 20 % 11/04/17 06:07 Glucose 116 mg/dL (75-100) H 11/04/17 06:07 POC Glucose 109 (70-105) H 11/04/17 21:32 Calcium 9.2 mg/dL (8.4-10.2) 11/04/17 06:07 Total Bilirubin 0.30 mg/dL (0.1-1.2) 11/04/17 06:07 AST 14 units/L (5-40) 11/04/17 06:07 ALT 10 units/L (7-56) 11/04/17 06:07 Alkaline Phosphatase 95 units/L (35-129) 11/04/17 06:07 Total Creatine Kinase 72 units/L (55-170) 11/04/17 06:07 CK-MB (CK-2) 2.2 ng/mL (0.0-4.0) 11/04/17 06:07 CK-MB (CK-2) Rel Index 3.0 (0-4) 11/04/17 06:07 Troponin T 0.012 ng/mL (0.00-0.029) 11/04/17 06:07 NT-Pro-B Natriuret Pep 166.3 pg/mL (0-900) 11/03/17 12:27 Total Protein 7.0 g/dL (6.3-8.2) 11/04/17 06:07 Albumin 3.6 g/dL (3.9-5) L 11/04/17 06:07 Albumin/Globulin Ratio 1.1 % 11/04/17 06:07
[2017-11-07] MEDS: AMBIEN PO PRN (21:48)
[2017-11-07] MEDS: ELIQUIS PO SCH (21:48)
[2017-11-07] MEDS: REMERON PO SCH (21:49)
[2017-11-08] MEDS: TYLENOL PO SCH ×2 (00:30→08:26)
[2017-11-08] MEDS: PERCOCET 5/325 PO PRN ×2 (05:48→12:08)
[2017-11-08] MEDS: NEURONTIN PO SCH ×2 (05:48→13:40)
--- NOTE | 2017-11-08 07:16 | Progress Note ---
Assessment and Plan Assessment and plan: 82M with pmh of CAD, afib, mild systolic Dysfunction, who presents with chest pain (1) Chest pain in adult most likely due to GERD, question compliance with PPI at home -Stress test negative, no further workup indicated, now resolved (2) GERD (gastroesophageal reflux disease) Cont PPI's (3) HTN (hypertension) Cont Amlodipine and Lisinopril (4) Afib sp Pacemaker with hypercoaguable state Cont Eliquis (5) DVT prophylaxis fully anticoagulated OA and neuropathy continue pain meds and gabapentin Debility -continue PT, awaiting SNF placement History Interval history: Denies CP, SOB, abdominal pain or fever admits generalized weakness and unsteady gait Hospitalist Physical - Physical exam Narrative exam: General appearance: Present: no acute distress, well-nourished - EENT Eyes: Present: PERRL ENT: hearing intact - Neck Neck: Present: supple - Respiratory Respiratory effort: normal Respiratory: bilateral: CTA - Cardiovascular Heart Sounds: Present: S1 & S2 - Extremities Extremities: no ischemia Peripheral Pulses: within normal limits - Abdominal General gastrointestinal: soft, non-tender - Integumentary Integumentary: Present: clear, warm - Psychiatric Psychiatric: appropriate mood/affect - Neurologic Neurologic: CNII-XII intact, moves all extremities - Constitutional Vitals: Temp Pulse Resp BP Pulse Ox 97.4 F L 69 18 113/64 96 11/08/17 04:26 11/08/17 04:26 11/08/17 04:26 11/08/17 04:26 11/08/17 04:26 General appearance: Present: no acute distress, well-nourished Results - Labs CBC & Chem 7: 11/04/17 06:07 11/04/17 06:07 Labs: Laboratory Last Values WBC 4.6 K/mm3 (4.5-11.0) 11/04/17 06:07 RBC 4.60 M/mm3 (3.65-5.03) 11/04/17 06:07 Hgb 11.1 gm/dl (11.8-15.2) L 11/04/17 06:07 Hct 35.3 % (35.5-45.6) L 11/04/17 06:07 MCV 77 fl (84-94) L 11/04/17 06:07 MCH 24 pg (28-32) L 11/04/17 06:07 MCHC 32 % (32-34) 11/04/17 06:07 RDW 16.8 % (13.2-15.2) H 11/04/17 06:07 Plt Count 229 K/mm3 (140-440) 11/04/17 06:07 Lymph % (Auto) 28.9 % (13.4-35.0) 11/04/17 06:07 [place] % (Auto) 8.0 % (0.0-7.3) H 11/04/17 06:07 Eos % (Auto) 5.9 % (0.0-4.3) H 11/04/17 06:07 Baso % (Auto) 0.9 % (0.0-1.8) 11/04/17 06:07 Lymph # 1.3 K/mm3 (1.2-5.4) 11/04/17 06:07 [place] # 0.4 K/mm3 (0.0-0.8) 11/04/17 06:07 Eos # 0.3 K/mm3 (0.0-0.4) 11/04/17 06:07 Baso # 0.0 K/mm3 (0.0-0.1) 11/04/17 06:07 Seg Neutrophils % 56.3 % (40.0-70.0) 11/04/17 06:07 Seg Neutrophils # 2.6 K/mm3 (1.8-7.7) 11/04/17 06:07 PT 13.5 Sec. (12.2-14.9) 11/03/17 12:11 INR 0.98 (0.87-1.13) 11/03/17 12:11 APTT 32.3 Sec. (24.2-36.6) 11/03/17 12:11 Sodium 140 mmol/L (137-145) 11/04/17 06:07 Potassium 4.1 mmol/L (3.6-5.0) 11/04/17 06:07 Chloride 102.9 mmol/L (98-107) 11/04/17 06:07 Carbon Dioxide 24 mmol/L (22-30) 11/04/17 06:07 Anion Gap 17 mmol/L 11/04/17 06:07 BUN 14 mg/dL (9-20) 11/04/17 06:07 Creatinine 0.7 mg/dL (0.8-1.5) L 11/04/17 06:07 Estimated GFR > 60 ml/min 11/04/17 06:07 BUN/Creatinine Ratio 20 % 11/04/17 06:07 Glucose 116 mg/dL (75-100) H 11/04/17 06:07 POC Glucose 109 (70-105) H 11/04/17 21:32 Calcium 9.2 mg/dL (8.4-10.2) 11/04/17 06:07 Total Bilirubin 0.30 mg/dL (0.1-1.2) 11/04/17 06:07 AST 14 units/L (5-40) 11/04/17 06:07 ALT 10 units/L (7-56) 11/04/17 06:07 Alkaline Phosphatase 95 units/L (35-129) 11/04/17 06:07 Total Creatine Kinase 72 units/L (55-170) 11/04/17 06:07 CK-MB (CK-2) 2.2 ng/mL (0.0-4.0) 11/04/17 06:07 CK-MB (CK-2) Rel Index 3.0 (0-4) 11/04/17 06:07 Troponin T 0.012 ng/mL (0.00-0.029) 11/04/17 06:07 NT-Pro-B Natriuret Pep 166.3 pg/mL (0-900) 11/03/17 12:27 Total Protein 7.0 g/dL (6.3-8.2) 11/04/17 06:07 Albumin 3.6 g/dL (3.9-5) L 11/04/17 06:07 Albumin/Globulin Ratio 1.1 % 11/04/17 06:07
[2017-11-08] MEDS: BUSPAR PO SCH (09:05)
[2017-11-08] MEDS: PROTONIX PO SCH (09:05)
[2017-11-08] MEDS: NORVASC PO SCH (09:05)
[2017-11-08] MEDS: ZESTRIL PO SCH (09:07)
[2017-11-08 09:08] VITALS: BP 132/67
== END 2017-11-08 15:14 | DRG 392 ==
LOC: ED 11:51 → 4A 15:08 → 2B-ACE 11-06 14:22
PROVIDERS: ADMIT Internal Medicine; ATTEND Internal Medicine
DX: K21.9 Gastro-esophageal reflux disease without esophagitis (principal); D68.59 Other primary thrombophilia; I10 Essential (primary) hypertension; I25.10 Atherosclerotic heart disease of native coronary artery without angina pectoris; G62.9 Polyneuropathy, unspecified; M19.90 Unspecified osteoarthritis, unspecified site; I48.91 Unspecified atrial fibrillation; Z95.0 Presence of cardiac pacemaker; Z82.49 Family history of ischemic heart disease and other diseases of the circulatory system; Z79.82 Long term (current) use of aspirin; Z88.6 Allergy status to analgesic agent; Z79.899 Other long term (current) drug therapy
CPT/HCPCS: 36415; 71010; 78452; 80048; 80053; 82550; 82553; 82962; 83880; 84484; 85025; 85610; 85730; 93005; 93010; 93017; 96374; 96375; A9502; G8978-GP; G8979-GP; J2270; J2405; J2785

== ENCOUNTER 2017-11-23 15:42 | Emergency (ER) | payer MEDICARE ==
[2017-11-23 17:57] LABS: Basophils # (Auto) 0.1 K/mm3 (0.0-0.1); Basophils % (Auto) 0.7 % (0.0-1.8); Eosinophils # (Auto) 0.1 K/mm3 (0.0-0.4); Eosinophils % (Auto) 1.7 % (0.0-4.3); Hematocrit 41.9 % (35.5-45.6); Hemoglobin 13.3 gm/dl (11.8-15.2); Lymphocytes % (Auto) 14.5 % (13.4-35.0); Mean Corpuscular HGB Conc 32 % (32-34); Mean Corpuscular Volume 78 fl (84-94); Monocytes # (Auto) 0.5 K/mm3 (0.0-0.8); Monocytes % (Auto) 6.8 % (0.0-7.3); Platelet Count 230 K/mm3 (140-440); Red Blood Count 5.37 M/mm3 (3.65-5.03); Red Cell Distribution Width 17.4 % (13.2-15.2)
[2017-11-23 17:58] LABS: Mean Corpuscular Hemoglobin 25 pg (28-32)
[2017-11-23 18:58] LABS: Alanine Aminotransferase 15 units/L (7-56); Albumin 4.3 g/dL (3.9-5); BUN/Creatinine Ratio 26; Blood Urea Nitrogen 18 mg/dL (9-20); Calcium 10.1 mg/dL (8.4-10.2); Hemolysis Index 10
[2017-11-23] MEDS ORDERED: NACL 0.9% 1000 ML 1,000 ML IV ONE (20:48)
[2017-11-23] MEDS ORDERED: PEPCID IV ONE (20:48)
[2017-11-23] MEDS ORDERED: ZOFRAN IV ONE (20:48)
--- NOTE | 2017-11-23 23:39 | Cat Scan Report ---
FINAL REPORT PROCEDURE: CT ABDOMEN PELVIS W CON TECHNIQUE: Computerized axial tomography of the abdomen and pelvis was performed after the IV injection of iodinated nonionic contrast. HISTORY: abd pain COMPARISON: No prior studies are available for comparison. FINDINGS: Visualized lower thorax: No significant abnormality. Liver: Normal size and attenuation. Spleen: Normal size and attenuation. Gallbladder and biliary system: Normal. Pancreas: Normal. Adrenals: Normal. Kidneys: Normal. GI tract: There is a hiatal hernia. There is no bowel obstruction, colitis or enteritis. The appendix is normal.. Lymph nodes and mesentery: Normal. Vasculature: There is no aneurysm.. Bladder: Normal. Reproductive organs: Normal. Peritoneum: There is no ascites or free air, abscess or adenopathy.. Musculoskeletal structures: No significant abnormality. Other: There is a left inguinal hernia containing omental fat only.. IMPRESSION: There is a hiatal hernia. There is no bowel obstruction, colitis or enteritis. The appendix is normal.. There is no ascites or free air, abscess or adenopathy.. There is a left inguinal hernia containing omental fat only..
[2017-11-24] MEDS ORDERED: NORCO PO ONE (00:20)
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
[2017-11-24 05:43] VITALS: BP 143/87
== END 2017-11-24 05:41 | disposition home or self-care (01) ==
LOC: ED 15:42
DX: K44.9 Diaphragmatic hernia without obstruction or gangrene (principal); Z86.73 Personal history of transient ischemic attack (TIA), and cerebral infarction without residual deficits; I25.2 Old myocardial infarction; K21.9 Gastro-esophageal reflux disease without esophagitis; G43.909 Migraine, unspecified, not intractable, without status migrainosus; M19.90 Unspecified osteoarthritis, unspecified site; J44.9 Chronic obstructive pulmonary disease, unspecified; Z95.818 Presence of other cardiac implants and grafts; Z88.6 Allergy status to analgesic agent
CPT/HCPCS: 36415; 74177; 80053; 85025; 96361; 96374; 96375; 99284; J2405; J7030; Q9967

== ENCOUNTER 2018-01-23 18:15 | Emergency (ER) | payer MEDICARE ==
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
[2018-01-23] MEDS ORDERED: ATIVAN IV ONE (18:56)
[2018-01-23] MEDS ORDERED: ZOFRAN IV ONE (18:56)
[2018-01-23] MEDS ORDERED: MORPHINE IV ONE (18:56)
[2018-01-23 19:39] LABS: Basophils % (Auto) 0.7 % (0.0-1.8); Eosinophils # (Auto) 0.2 K/mm3 (0.0-0.4); Eosinophils % (Auto) 2.7 % (0.0-4.3); Hematocrit 37.3 % (35.5-45.6); Hemoglobin 11.9 gm/dl (11.8-15.2); Lymphocytes # (Auto) 0.9 K/mm3 (1.2-5.4); Lymphocytes % (Auto) 15.2 % (13.4-35.0); Mean Corpuscular HGB Conc 32 % (32-34); Mean Corpuscular Volume 77 fl (84-94); Monocytes # (Auto) 0.5 K/mm3 (0.0-0.8); Monocytes % (Auto) 8.2 % (0.0-7.3); Platelet Count 259 K/mm3 (140-440); Red Blood Count 4.82 M/mm3 (3.65-5.03); Red Cell Distribution Width 18.2 % (13.2-15.2)
[2018-01-23 19:46] LABS: Mean Corpuscular Hemoglobin 25 pg (28-32)
[2018-01-23 19:48] LABS: INR 0.94 (0.87-1.13)
[2018-01-23 19:56] LABS: Alanine Aminotransferase 12 units/L (7-56); Albumin 3.7 g/dL (3.9-5); BUN/Creatinine Ratio 17; Blood Urea Nitrogen 10 mg/dL (9-20); Calcium 9.7 mg/dL (8.4-10.2); Hemolysis Index 7; Lipase 14 units/L (13-60)
[2018-01-23 20:08] LABS: Bilirubin,Direct < 0.2 mg/dL (0-0.2)
[2018-01-23 21:19] VITALS: BP 117/76
--- NOTE | 2018-01-23 22:21 | Cat Scan Report ---
FINAL REPORT PROCEDURE: CT CHEST W CON TECHNIQUE: Computerized axial tomography of the chest was performed during the IV injection of iodinated nonionic contrast. HISTORY: pain, hx of hiatal hernia, esophageal spasms, CAD COMPARISON: 03/02/2016 TECHNICAL QUALITY: Satisfactory. FINDINGS: Heart and pericardium: No pericardial effusion or thickening. Thoracic aorta: Mild atherosclerotic calcification. No aneurysm or dissection. Pulmonary vasculature: Normal. Lymph nodes: No enlarged thoracic lymph nodes. Lungs: There is biapical pulmonary scarring. Pleural space: No effusion, thickening, or pneumothorax. Musculoskeletal structures: Cervicothoracic degenerative disc changes. Upper abdominal structures: Hiatal hernia is visualized. Esophagus appears patulous but stable in appearance. IMPRESSION: Hiatal hernia is present. Esophagus appears mildly patulous
--- NOTE | 2018-01-23 22:46 | Emergency Department Report ---
Blank Doc - Documentation Documentation: I was asked by Dr. Simon to follow-up on this patient's CT scan results of the chest with the instructions that if there is any significant abnormality that the patient might require admission. Otherwise he should be okay for discharge home. CT scan shows a hiatal hernia and a slightly patulous esophagus but otherwise no other acute process. The patient has known esophageal stricture and previous dilation. He says he has good follow-up with gastroenterology. Labs are mostly unremarkable. Vital signs stable. He'll be discharged home with encouragement to follow up with gastroenterology, his primary care physician, and a prescription for a very small amount of pain medication. He has been encouraged to return to the emergency Department with any worsening of his symptoms or any acute distress.
[2018-01-23 23:26] LABS: Bilirubin,Urine NEG (Negative); Blood,Urine NEG (Negative); Color,Urine Yellow (Yellow); Mucus,Urine 1+ /HPF; Protein,Urine <15 mg/dL mg/dL (Negative); Urobilinogen,Urine < 2.0 mg/dL (<2.0)
== END 2018-01-24 01:14 | disposition home or self-care (01) ==
LOC: ED 18:15
DX: R10.13 Epigastric pain (principal); K44.9 Diaphragmatic hernia without obstruction or gangrene; I10 Essential (primary) hypertension; I25.2 Old myocardial infarction; M19.90 Unspecified osteoarthritis, unspecified site; G43.909 Migraine, unspecified, not intractable, without status migrainosus; Z86.73 Personal history of transient ischemic attack (TIA), and cerebral infarction without residual deficits; Z88.6 Allergy status to analgesic agent
CPT/HCPCS: 36415; 71260; 80048; 80074; 81001; 82150; 83690; 85025; 85610; 96374; 96375; 99284; J2060; J2270; J2405; Q9967

== ENCOUNTER 2018-03-07 11:18 | Inpatient (IN) | payer MEDICARE ==
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
[2018-03-07 13:01] LABS: Basophils % (Auto) 0.8 % (0.0-1.8); Eosinophils # (Auto) 0.2 K/mm3 (0.0-0.4); Eosinophils % (Auto) 2.8 % (0.0-4.3); Hemoglobin 12.9 gm/dl (11.8-15.2); Lymphocytes # (Auto) 1.1 K/mm3 (1.2-5.4); Lymphocytes % (Auto) 18.8 % (13.4-35.0); Mean Corpuscular HGB Conc 32 % (32-34); Mean Corpuscular Volume 76 fl (84-94); Monocytes # (Auto) 0.4 K/mm3 (0.0-0.8); Monocytes % (Auto) 6.8 % (0.0-7.3); Platelet Count 275 K/mm3 (140-440); Red Blood Count 5.24 M/mm3 (3.65-5.03); Red Cell Distribution Width 17.1 % (13.2-15.2)
[2018-03-07 13:07] LABS: Mean Corpuscular Hemoglobin 25 pg (28-32)
[2018-03-07] MEDS ORDERED: NACL 0.9% 1000 ML 1,000 ML ONE (13:15)
[2018-03-07 13:16] LABS: Alanine Aminotransferase 9 units/L (7-56); Albumin 4.1 g/dL (3.9-5); BUN/Creatinine Ratio 16; Blood Urea Nitrogen 11 mg/dL (9-20); Calcium 9.4 mg/dL (8.4-10.2); Hemolysis Index 11
[2018-03-07] MEDS ORDERED: DILAUDID ONE (13:16)
[2018-03-07] MEDS ORDERED: NACL 0.9% 1000 ML 1,000 ML IV ONE (13:27)
[2018-03-07] MEDS ORDERED: DILAUDID IV ONE (13:28)
--- NOTE | 2018-03-07 14:05 | Cat Scan Report ---
CT ABDOMEN AND PELVIS WITHOUT CONTRAST INDICATION: Abdominal pain. COMPARISON: 11/23/2017 FINDINGS: Noncontrast abdomen and pelvis CT performed. LUNG BASES: Normal heart size. Streak artifact from pacemaker leads again noted. Approximately 8 cm hiatal hernia containing herniated gastric fundus and some mesenteric fat again noted with fluid filled distal esophageal caliber of approximately 2.3 cm with possible wall thickening, not excluded for gastroesophageal reflux/hiatal hernia or even subtle mass/neoplasm, amongst others. ABDOMEN: Please note that sensitivity to detect small visceral lesions is limited due to the absence of intravenous or oral contrast. Gallbladder distended to approximately 10.5 cm. Otherwise grossly unremarkable unenhanced liver, spleen, pancreas, adrenals, IVC, nonaneurysmal abdominal aorta with few atherosclerotic calcifications and kidneys. No ascites or size significant adenopathy. Nonopacified GI tract evaluation limited, though grossly nonobstructive. PELVIS: Mildly enlarged prostate may be correlated for clinically and with PSA. Prostatic calcifications also seen. Grossly unremarkable nonopacified seminal vesicles and the urinary bladder. Mild rectal stool. No free fluid or significant adenopathy. A 1.7 cm fat containing left inguinal hernia again seen. Advanced multilevel lumbar spine degenerative changes including severe disc narrowing, vacuum disc phenomenon, few endplate irregularities and adjacent sclerosis greatest at L2-L3. Possible osteopenia. CONCLUSION: 1. Moderate to large hiatal hernia again noted, as detailed above. GI endoscopic/barium swallow correlation may also be obtained, as warranted. 2. No other acute significant CT abnormality noted on this limited, unenhanced exam with various other findings, as described. Thank you for the opportunity to participate in this patient's care.
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
[2018-03-07] MEDS ORDERED: TYLENOL PO PRN (16:43)
[2018-03-07] MEDS ORDERED: PROVENTIL IH PRN (16:43)
[2018-03-07] MEDS ORDERED: SODIUM CHLORIDE FLUSH SYRINGE 10 ML IV PRN (16:43)
[2018-03-07] MEDS: MORPHINE IV PRN (22:41)
[2018-03-07] MEDS: ZOFRAN IV PRN (22:41)
[2018-03-07] MEDS: SODIUM CHLORIDE FLUSH SYRINGE 10 ML IV SCH (22:43)
[2018-03-08] MEDS ORDERED: ATIVAN IV ONE (01:19)
[2018-03-08] MEDS: SODIUM CHLORIDE FLUSH SYRINGE 10 ML IV SCH ×2 (09:30→22:35)
--- NOTE | 2018-03-08 11:08 | Consultation ---
REFERRING PHYSICIAN: Dr. Cher Guevara. INDICATION: Dysphagia. HISTORY OF PRESENT ILLNESS: The patient is an 82-year-old white male with history of hypertension, CVA, GERD as well as status post [place] and seizure disorder as well as COPD, now presents for problems swallowing. The patient reports a history of dysphagia and has had multiple EGDs with dilatations in the past. The patient reports last one was in [place] approximately 2 months ago and was told to have a followup 6 weeks later with the plan of probably more dilation. These records are not yet available. The patient reports over the last month, he has been having problems with swallowing with decreased problem with passing of food. He reports liquid pass, but now are also becoming uncomfortable. He does report some odynophagia. Denies vomiting. Denies any lower GI symptoms including diarrhea, constipation or rectal bleeding. The patient subsequently came to the Emergency Room, was admitted and GI consulted. PAST MEDICAL HISTORY: 1. COPD. 2. Hypertension. 3. Status post CVA. 4. Status post [place]. 5. GERD. 6. Migraines. 7. Skin cancer. 8. Seizure disorder. 9. Esophageal strictures. PAST SURGICAL HISTORY: 1. Hernia repair. 2. Status post ICD pacemaker placement. MEDICATIONS: See chart. ALLERGIES: ASPIRIN AND IBUPROFEN. SOCIAL HISTORY: Denies alcohol, tobacco, or IV drug abuse. FAMILY HISTORY: Negative for colon cancer, IBD, or liver disease. REVIEW OF SYSTEMS: GENERAL: Reports mild weakness. HEENT: No visual complaints or tinnitus. PULMONARY: No shortness of breath. CARDIOVASCULAR: Denies chest pain. GASTROINTESTINAL: Reports problem swallowing. All points of 13-point review of systems otherwise negative. PHYSICAL EXAMINATION: VITAL SIGNS: Temperature of 97.8, pulse 77, respirations 20, blood pressure 134/81. GENERAL: Fairly nourished white male in no acute distress. HEENT: Pupils equal, round and reactive. PULMONARY: Rhonchi. CARDIOVASCULAR: Regular rhythm. Normal S1 and S2. ABDOMEN: Positive bowel sounds, soft. SKIN: No obvious rashes. LABORATORY DATA: Pertinent for white count of 5.8 with hematocrit 12.9 and 40.0, platelet count 275. Chem-7 within normal limits. LFTs within normal limits. ASSESSMENT AND PLAN: An 82-year-old white male with extensive past medical history as noted above, now reports a history of esophageal stricture status post multiple dilations in the past, the last one being approximately 2 months and was supposed to have followup 6 weeks later. Now, presents with progressive worsening problems swallowing. The patient reports he has had most of his work done at [place]. Possible esophageal stricture. PLAN: 1. Barium swallow. 2. We will attempt to get records from [place]. 3. Clear liquid diet after barium swallow. 4. We will consider EGD based on progress and results of above. JOB# [id number] CAB/NTS
[2018-03-08] MEDS: MORPHINE IV PRN ×3 (12:09→22:33)
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
[2018-03-08] MEDS: D5NS 1,000 ML IV SCH ×2 (13:53→22:34)
[2018-03-08] MEDS: PROTONIX IV SCH (13:53)
[2018-03-08] MEDS: ZOFRAN IV PRN (14:38)
[2018-03-08] MEDS: LOVENOX SUB-Q SCH ×2 (14:38→22:33)
[2018-03-09] MEDS: ATIVAN IV PRN ×2 (01:09→22:25)
[2018-03-09] MEDS: ZOFRAN IV PRN (01:10)
[2018-03-09] MEDS: LOVENOX SUB-Q SCH (10:06)
[2018-03-09] MEDS: PROTONIX IV SCH (10:06)
[2018-03-09] MEDS: SODIUM CHLORIDE FLUSH SYRINGE 10 ML IV SCH ×2 (10:07→22:25)
[2018-03-09] MEDS: MORPHINE IV PRN (12:07)
[2018-03-09] MEDS ORDERED: WATER FOR IRRIG STERILE IR ONE (12:20)
[2018-03-09] MEDS ORDERED: NACL 0.9% 1000 ML 1,000 ML ONE (12:20)
--- NOTE | 2018-03-09 12:50 | Anesthesia Day of Surgery ---
Anesthesia Day of Surgery - Day of Surgery Patient Examined: Yes Patient H&P Reviewed: Yes Patient is NPO: Yes Beta Blockers: No Cardiac Clearance: No Pulmonary Clearance: No
--- NOTE | 2018-03-09 12:51 | Anesthesia Consultation ---
Anesthesia Consult and Med Hx Date of service: 03/09/18 - Airway Anesthetic Teeth Evaluation: Edentulous ROM Head & Neck: Adequate Mental/Hyoid Distance: Adequate Mallampati Class: Class II Intubation Access Assessment: Probably Good - Pulmonary Exam CTA: No (crackles and Rhonchi) - Cardiac Exam Cardiac Exam: No Murmur - Pre-Operative Health Status ASA Pre-Surgery Classification: ASA4 Proposed Anesthetic Plan: MAC - Pulmonary Hx Smoking: Yes (former smoker) Hx Asthma: No COPD: Yes Home Oxygen Therapy: No Hx Pneumonia: No Hx Sleep Apnea: No - Cardiovascular System Hx Hypertension: Yes Hx Coronary Artery Disease: Yes (hyperlipidemia) Hx Heart Attack/AMI: Yes (2006) Hx Angina: Yes Hx Cardia Arrhythmia: Yes (has pacemaker) Hx Pacemaker: Yes Hx Internal Defibrillator: Yes (ventricular pacemaker) Hx Valvular Heart Disease: No Hx Heart Murmur: No Hx Peripheral Vascular Disease: No - Central Nervous System 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
[2018-03-09] MEDS ORDERED: DIPRIVAN 10 MG/ML IV ONE (12:52)
[2018-03-09] MEDS ORDERED: XYLOCAINE 2% INFILTRATI ONE (12:53)
[2018-03-09] MEDS ORDERED: XYLOCAINE MPF 2% ONE (13:00)
--- NOTE | 2018-03-09 13:19 | Post Operative Note ---
Pre-op diagnosis: dysphagia Post-op diagnosis: other (food impaction) Findings: EGD: food impaction distal esophagus, pushed to stomach - large hiatal hernia - moderate ring w/ erythema g-e junction (not dilated) - otherwise benign Procedure: EGD w/ food disimpaction Anesthesia: MAC Surgeon: BENNIE BOLDEN Estimated blood loss: none Pathology: none Condition: stable Disposition: floor
[2018-03-09] MEDS: NACL 0.9% 1000 ML 1,000 ML IV SCH ×2 (13:33→14:05)
--- NOTE | 2018-03-09 13:34 | Operative Report ---
EGD procedure note INDICATION: 1. Dysphagia. 2. Possible food impaction. MEDICATIONS: Propofol per PRECAST MOLDER. COMPLICATIONS: None. DESCRIPTION OF PROCEDURE: The patient brought to the procedure suite. The patient had the procedure discussed with him at length. All risks, complications, and benefits discussed after which the patient signed for the procedure performed. The patient was placed in left lateral decubitus position. Mouth block placed in the patient's oral cavity. After adequate sedation medication as above, endoscope placed in mouth and brought to the level of the second portion of duodenum. Retroflexion view performed. The patient's vital signs remained stable throughout the procedure. FINDINGS: There was noted to be moderate food impaction noted in distal esophagus at 35 cm from the gums. This is just above the GE junction. With moderate pressure is able to push this food material into the stomach. This was solid material. There was noted to be moderate Raynaud's GE junction 35 cm from the gums. There is approximately 5-1/2 to 6 cm hiatal hernia at GE junction. We stressed and tense. There is approximately 5 cm hiatal hernia at GE junction. The esophagus otherwise appeared to be normal. Mild gastritis noted in the stomach. Stomach otherwise appeared to be normal. Duodenum appeared to be normal. Retroflexion view performed in the stomach showed no other pathology other than noted above. The patient tolerated the procedure well. No complications during the procedure. IMPRESSION: 1. Food impaction, status post disimpaction with pushing food material into the stomach. 2. Moderate in GE junction. It should be noted there was a lot of erythema and inflammation around the string and given the food impaction and so no dilatation was performed. 3. Hiatal hernia. 4. Otherwise, benign EGD. RECOMMENDATIONS: 1. Clear liquid diet, advance to soft as tolerated. 2. PPI daily. Once the patient able to tolerate soft diet, okay to discharge. 3. The patient will require EGD with further dilatation as an outpatient. JOB# [id number] [facility]/NTS
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
[2018-03-09] MEDS ORDERED: NORCO PO PRN (22:32)
[2018-03-09] MEDS: NEURONTIN PO SCH (23:05)
[2018-03-10] MEDS: PROTONIX IV SCH (09:15)
[2018-03-10] MEDS: SODIUM CHLORIDE FLUSH SYRINGE 10 ML IV SCH (09:16)
[2018-03-10] MEDS ORDERED: BUSPAR PO SCH (10:00)
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
[2018-03-10] MEDS: NEURONTIN PO SCH (14:00)
[2018-03-10 14:17] VITALS: BP 111/64
[2018-03-10] MEDS ORDERED: ELIQUIS PO SCH (22:00)
[2018-03-10] MEDS ORDERED: REMERON PO SCH (22:00)
== END 2018-03-10 14:15 | DRG 392 ==
LOC: ED 11:18 → 2B-ACE 16:43 → EDBD 16:43
PROVIDERS: ADMIT Internal Medicine; ATTEND Internal Medicine
PROC: 0DJ08ZZ Inspection of Upper Intestinal Tract, Via Natural or Artificial Opening Endoscopic (ICD-10-PCS; principal; 2018-03-09)
DX: K22.2 Esophageal obstruction (principal); K44.0 Diaphragmatic hernia with obstruction, without gangrene; Z88.6 Allergy status to analgesic agent; Z88.8 Allergy status to other drugs, medicaments and biological substances; Z79.899 Other long term (current) drug therapy; Z86.73 Personal history of transient ischemic attack (TIA), and cerebral infarction without residual deficits; I25.2 Old myocardial infarction; G43.909 Migraine, unspecified, not intractable, without status migrainosus; J44.9 Chronic obstructive pulmonary disease, unspecified; Z95.810 Presence of automatic (implantable) cardiac defibrillator; I10 Essential (primary) hypertension; G40.909 Epilepsy, unspecified, not intractable, without status epilepticus; R13.10 Dysphagia, unspecified; I48.2 Chronic atrial fibrillation; G20 Parkinson's disease; F41.1 Generalized anxiety disorder; F03.90 Unspecified dementia, unspecified severity, without behavioral disturbance, psychotic disturbance, mood disturbance, and anxiety; H54.61 Unqualified visual loss, right eye, normal vision left eye; Z87.891 Personal history of nicotine dependence; K21.0 Gastro-esophageal reflux disease with esophagitis
CPT/HCPCS: 36415; 74176; 74220; 80053; 85025; 96374; C9113; J1170; J1650; J2060; J2270; J2405; J2704; J7030; J7042

== ENCOUNTER 2018-06-20 08:34 | Emergency (ER) | payer MEDICARE ==
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
[2018-06-20 09:45] LABS: Basophils # (Auto) 0.1 K/mm3 (0.0-0.1); Eosinophils # (Auto) 0.1 K/mm3 (0.0-0.4); Eosinophils % (Auto) 1.2 % (0.0-4.3); Hematocrit 37.1 % (35.5-45.6); Lymphocytes # (Auto) 0.7 K/mm3 (1.2-5.4); Lymphocytes % (Auto) 10.1 % (13.4-35.0); Mean Corpuscular HGB Conc 33 % (32-34); Mean Corpuscular Volume 76 fl (84-94); Monocytes # (Auto) 0.4 K/mm3 (0.0-0.8); Monocytes % (Auto) 5.4 % (0.0-7.3); Platelet Count 343 K/mm3 (140-440); Red Blood Count 4.86 M/mm3 (3.65-5.03)
[2018-06-20 09:51] LABS: Mean Corpuscular Hemoglobin 25 pg (28-32); Red Cell Distribution Width 21.1 % (13.2-15.2)
[2018-06-20] MEDS ORDERED: MORPHINE ONE ×2 (10:26→19:52)
[2018-06-20 10:27] LABS: BUN/Creatinine Ratio 19; Blood Urea Nitrogen 13 mg/dL (9-20); Calcium 9.6 mg/dL (8.4-10.2); Hemolysis Index 2
[2018-06-20] MEDS ORDERED: ZOFRAN IV ONE ×2 (10:27→20:54)
[2018-06-20] MEDS ORDERED: MORPHINE IV ONE ×2 (10:27→19:56)
[2018-06-20] MEDS ORDERED: DILAUDID IV ONE ×2 (13:06→17:14)
--- NOTE | 2018-06-20 16:39 | Cat Scan Report ---
FINAL REPORT EXAM: CT ANGIO CHEST HISTORY: sob. cp TECHNIQUE: Spiral CTA of the chest after the uneventful administration of IV contrast. Multiplanar reformations. 100 mL Omnipaque IV. PRIORS: CTA chest, [address] chest, 01 June 2018. FINDINGS: Chest: The main and bilateral proximal pulmonary arteries are normally opacified without endoluminal filling defects. Upper esophagus prominent or capacious and fluid-filled. Moderate-large hiatal hernia, with distended, fluid-filled distal esophagus. Fluid-filled collection noted previously in the distal right paraesophageal region of mediastinum mildly increased in size, now measuring approximately 3 x 4.5 cm in cross-sectional diameter and containing an air-fluid level, new from comparison. A few, smaller and extraluminal gas locules also noted in the distal mediastinum, adjacent to the distal esophagus, largest located along left anterolateral paraesophageal region, suspicious for microperforation. No apparent aneurysm, pseudoaneurysm or aortic dissection. No significant lymph node enlargement or axillary adenopathy. Lungs show mild interstitial or fibrotic change and scarring scattered bilaterally. No discrete parenchymal mass, focal consolidation or pleural effusions. No apparent pneumothorax. Gallbladder distended without radiopaque gallstones. Moderate-marked gastric distention containing mostly fluid and some gas. Visualized duodenum also distended and fluid-filled, with some mesenteric fat stranding in the anterior aspect of left upper quadrant partially visualized. IMPRESSION: 1. No evidence of large vessel or central pulmonary emboli. No acute consolidation. 2. Moderate-large hiatal hernia, with distended distal esophagus and paraesophageal fluid collection containing air-fluid level and smaller, extraluminal gas locules in the distal mediastinum, new in the interval and suspicious for microperforation. Clinical correlation and followup suggested. 3. Gastroduodenal distention and possible inflammatory change in left upper quadrant of the abdomen partially visualized cannot exclude functional versus mechanical bowel obstruction. Followup suggested. 4. Gallbladder distension, nonspecific. Dr. Dela Cruz discussed results with Dr. Avery on 20 June 2018 at approximately 1620 hours EST.
[2018-06-20] MEDS ORDERED: ZOSYN/NS 3.375GM/50ML 3.375 GM/50 ML BAG IV ONE (19:00)
[2018-06-20] MEDS ORDERED: VANCOMYCIN PHARMACY TO DOSE IV SCH (20:00)
[2018-06-20] MEDS ORDERED: VANCOMYCIN/NS 1 GM/250 ML 1 GM/250 ML BAG IV SCH (20:00)
[2018-06-20] MEDS ORDERED: VANCOMYCIN 2,000 MG in NACL 0.9% 500 ML 500 ML IV ONE (20:00)
[2018-06-20 20:45] VITALS: BP 143/71
[2018-06-20] MEDS ORDERED: SUBLIMAZE IV ONE (20:53)
== END 2018-06-20 21:50 | disposition other institution (70) ==
LOC: ED 08:34
DX: K22.3 Perforation of esophagus (principal); I10 Essential (primary) hypertension; I25.2 Old myocardial infarction; K21.9 Gastro-esophageal reflux disease without esophagitis; M19.90 Unspecified osteoarthritis, unspecified site; G43.909 Migraine, unspecified, not intractable, without status migrainosus; J44.9 Chronic obstructive pulmonary disease, unspecified; G62.9 Polyneuropathy, unspecified; Z95.1 Presence of aortocoronary bypass graft; Z86.73 Personal history of transient ischemic attack (TIA), and cerebral infarction without residual deficits; Z87.891 Personal history of nicotine dependence; Z88.6 Allergy status to analgesic agent
CPT/HCPCS: 36415; 71275; 80048; 84484; 85025; 86850; 86900; 86901; 93005; 93010; 96365; 96366; 96367; 96375; 96376; 99285; J1170; J2270; J2405; J2543; J3010; J3370; J7040; Q9967; 99291; 99292

== ENCOUNTER 2019-04-06 07:32 | Inpatient (IN) | payer MEDICARE ==
[2019-04-06 09:17] LABS: Basophils # (Auto) 0.1 K/mm3 (0.0-0.1); Basophils % (Auto) 0.9 % (0.0-1.8); Eosinophils # (Auto) 0.2 K/mm3 (0.0-0.4); Eosinophils % (Auto) 2.6 % (0.0-4.3); Hematocrit 32.2 % (35.5-45.6); Hemoglobin 10.3 gm/dl (11.8-15.2); Lymphocytes % (Auto) 15.7 % (13.4-35.0); Mean Corpuscular HGB Conc 32 % (32-34); Mean Corpuscular Volume 72 fl (84-94); Monocytes # (Auto) 0.4 K/mm3 (0.0-0.8); Monocytes % (Auto) 5.9 % (0.0-7.3); Platelet Count 236 K/mm3 (140-440); Red Blood Count 4.49 M/mm3 (3.65-5.03); Red Cell Distribution Width 17.6 % (13.2-15.2)
--- NOTE | 2019-04-06 09:19 | XRay Report ---
AP CHEST: HISTORY: Hypertension Subtle patchy infiltrate has developed in the lingula and right lower lobe since 06/13/18. No pleural effusion or pneumothorax. Heart size is borderline. Pacemaker device is unchanged. Multiple foreign bodies in the left side of the chest are also unchanged. IMPRESSION: Subtle bilateral infiltrates, left greater than right. Correlate for pneumonia or aspiration.
[2019-04-06 09:29] LABS: INR 1.13 (0.87-1.13)
[2019-04-06 09:35] LABS: Bacteria,Urine 1+ /HPF (Negative); Bilirubin,Urine NEG (Negative); Blood,Urine NEG (Negative); Color,Urine Yellow (Yellow); Mucus,Urine 3+ /HPF
[2019-04-06 09:42] LABS: Alanine Aminotransferase 8 units/L (7-56); Albumin 3.9 g/dL (3.9-5); BUN/Creatinine Ratio 16; Blood Urea Nitrogen 13 mg/dL (9-20); Calcium 9.4 mg/dL (8.4-10.2); Hemolysis Index 15
[2019-04-06 09:43] LABS: Bilirubin,Direct < 0.2 mg/dL (0-0.2)
[2019-04-06] MEDS ORDERED: ROCEPHIN/NS 1 GM/50 ML 1 GM/50 ML BAG IV ONE (09:52)
--- NOTE | 2019-04-06 10:24 | Cat Scan Report ---
CT ABDOMEN PELVIS WITHOUT CONTRAST: HISTORY: abdominal pain. COMPARISON: 05/29/18. TECHNIQUE: Helical CT in 1.25mm intervals without IV contrast. Sagittal and coronal reconstructions. FINDINGS: Lung bases: Subtle patchy infiltrates are partially imaged at both lower lung zones. Pneumonia or aspiration should be considered. Liver: Normal. Biliary system: Normal. Pancreas: Moderate pancreatic atrophy. A 1 cm cyst is noted in the pancreatic neck which probably represents a pseudocyst. Spleen: Normal. Kidneys/ureters/bladder: Normal. Adrenal glands: Normal. Aorta: Mild scattered calcifications. No aneurysm. Intestines: No oral contrast was administered which limits this exam. There appears to be a rounded calcification in a small and medium hiatal hernia measuring up to 3 cm which is of uncertain significance please correlate with the images. The stomach, small bowel loops and colon are normal caliber. No focal inflammation or obstruction is appreciated. Appendix: Not identified, correlate with surgical history. Pelvic viscera: Normal. Ascites: None. Adenopathy: None. Musculoskeletal: Osteopenia and multilevel degenerative disc disease in the spine. IMPRESSION: No acute inflammatory process is appreciated in the abdomen or pelvis. Subtle infiltrates at the lung bases. Calcified intraluminal structure in a hiatal hernia of uncertain significance. Calcified debris? Bezoar?
[2019-04-06] MEDS ORDERED: PROTONIX IV ONE (10:41)
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
[2019-04-06] MEDS ORDERED: TORADOL ONE (11:19)
[2019-04-06] MEDS ORDERED: WATER FOR INJ Sterile (PF) 10 ML ONE (11:20)
--- NOTE | 2019-04-06 11:22 | Progress Note ---
Assessment and Plan Assessment and plan: 84-year-old man who was sent from senior care because he was unable to eat for several days Chronic A. fib, Hypertension, gerd, Esophageal stricture, status post and limitation in past, hiatal hernia, Colon cancer status post left hemicolectomy, History of GI bleed surgical hx; hernia repair, pacemaker, endoscopy with esophageal dilation, social hx; former smoker Diagnosis Food impaction; GI input appreciated, to endoscopy for disimpaction Esophageal stricture, status post and limitation in past, history of multiple episodes of food impaction, hiatal hernia GERD Chronic A. fib Hypertension -optimize meds, eliquis to be restarted after ok by GI Colon cancer status post left hemicolectomy History of GI bleed dvt ppx- lovenox History Interval history: Chronic A. fib, Hypertension, gerd, Esophageal stricture, status post and limitation in past, hiatal hernia, Colon cancer status post left hemicolectomy, History of GI bleed surgical hx; hernia repair, pacemaker, endoscopy with esophageal dilation, social hx; former smoker Hospitalist Physical - Constitutional Vitals: Temp Pulse Resp BP Pulse Ox 98.2 F 87 13 137/78 98 04/06/19 07:53 04/06/19 09:45 04/06/19 09:45 04/06/19 09:45 04/06/19 07:53 Results - Labs CBC & Chem 7: 04/06/19 08:59 04/06/19 08:59 Labs: Laboratory Last Values WBC 6.3 K/mm3 (4.5-11.0) 04/06/19 08:59 RBC 4.49 M/mm3 (3.65-5.03) 04/06/19 08:59 Hgb 10.3 gm/dl (11.8-15.2) L 04/06/19 08:59 Hct 32.2 % (35.5-45.6) L 04/06/19 08:59 MCV 72 fl (84-94) L 04/06/19 08:59 MCH 23 pg (28-32) L 04/06/19 08:59 MCHC 32 % (32-34) 04/06/19 08:59 RDW 17.6 % (13.2-15.2) H 04/06/19 08:59 Plt Count 236 K/mm3 (140-440) 04/06/19 08:59 Lymph % (Auto) 15.7 % (13.4-35.0) 04/06/19 08:59 [place] % (Auto) 5.9 % (0.0-7.3) 04/06/19 08:59 Eos % (Auto) 2.6 % (0.0-4.3) 04/06/19 08:59 Baso % (Auto) 0.9 % (0.0-1.8) 04/06/19 08:59 Lymph # 1.0 K/mm3 (1.2-5.4) L 04/06/19 08:59 [place] # 0.4 K/mm3 (0.0-0.8) 04/06/19 08:59 Eos # 0.2 K/mm3 (0.0-0.4) 04/06/19 08:59 Baso # 0.1 K/mm3 (0.0-0.1) 04/06/19 08:59 Seg Neutrophils % 74.9 % (40.0-70.0) H 04/06/19 08:59 Seg Neutrophils # 4.7 K/mm3 (1.8-7.7) 04/06/19 08:59 PT 15.2 Sec. (12.2-14.9) H 04/06/19 08:59 INR 1.13 (0.87-1.13) 04/06/19 08:59 APTT 42.0 Sec. (24.2-36.6) H 04/06/19 08:59 Sodium 141 mmol/L (137-145) 04/06/19 08:59 Potassium 4.1 mmol/L (3.6-5.0) 04/06/19 08:59 Chloride 102.4 mmol/L (98-107) 04/06/19 08:59 Carbon Dioxide 26 mmol/L (22-30) 04/06/19 08:59 17 mmol/L 04/06/19 08:59 BUN 13 mg/dL (9-20) 04/06/19 08:59 0.8 mg/dL (0.8-1.5) 04/06/19 08:59 Estimated GFR > 60 ml/min 04/06/19 08:59 16 % 04/06/19 08:59 Glucose 127 mg/dL (75-100) H 04/06/19 08:59 Calcium 9.4 mg/dL (8.4-10.2) 04/06/19 08:59 Magnesium 2.20 mg/dL (1.7-2.3) 04/06/19 08:59 0.50 mg/dL (0.1-1.2) 04/06/19 08:59 < 0.2 mg/dL (0-0.2) 04/06/19 08:59 0.3 mg/dL 04/06/19 08:59 AST 14 units/L (5-40) 04/06/19 08:59 ALT 8 units/L (7-56) 04/06/19 08:59 128 units/L (35-129) 04/06/19 08:59 7.8 g/dL (6.3-8.2) 04/06/19 08:59 3.9 g/dL (3.9-5) 04/06/19 08:59 1.0 % 04/06/19 08:59 14 units/L (13-60) 04/06/19 08:59 Yellow (Yellow) 04/06/19 09:22 Slightly-cloudy (Clear) 04/06/19 09:22 5.0 (5.0-7.0) 04/06/19 09:22 Ur Specific [place] 1.023 (1.003-1.030) 04/06/19 09:22 30 mg/dl mg/dL (Negative) 04/06/19 09:22 Neg mg/dL (Negative) 04/06/19 09:22 20 mg/dL (Negative) 04/06/19 09:22 Neg (Negative) 04/06/19 09:22 Neg (Negative) 04/06/19 09:22 Neg (Negative) 04/06/19 09:22 2.0 mg/dL (<2.0) 04/06/19 09:22 Ur Leukocyte Esterase Neg (Negative) 04/06/19 09:22 4.0 /HPF (0.0-6.0) 04/06/19 09:22 2.0 /HPF (0.0-6.0) 04/06/19 09:22 1+ /HPF (Negative) 04/06/19 09:22 3+ /HPF 04/06/19 09:22 Blood Type A POSITIVE 04/06/19 08:59 Antibody Screen Negative 04/06/19 08:59
[2019-04-06] MEDS ORDERED: ATIVAN IV PRN (13:30)
[2019-04-06] MEDS ORDERED: ZOFRAN IV PRN (13:30)
[2019-04-06] MEDS ORDERED: TYLENOL PO PRN (13:30)
[2019-04-06] MEDS ORDERED: SODIUM CHLORIDE FLUSH SYRINGE 10 ML IV PRN (13:30)
[2019-04-06] MEDS ORDERED: APRESOLINE IV PRN (13:32)
[2019-04-06] MEDS ORDERED: TORADOL IV ONE (14:01)
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
[2019-04-06] MEDS ORDERED: NACL 0.9% 1000 ML 1,000 ML IV SCH (16:00)
[2019-04-06] MEDS ORDERED: WATER FOR IRRIG STERILE IR ONE (17:08)
[2019-04-06] MEDS ORDERED: DIPRIVAN 10 MG/ML IV ONE (17:10)
[2019-04-06] MEDS ORDERED: SUBLIMAZE ONE ×2 (17:11→18:13)
[2019-04-06] MEDS ORDERED: XYLOCAINE MPF 2% ONE (17:14)
[2019-04-06] MEDS ORDERED: ZOFRAN ONE (18:18)
[2019-04-06] MEDS: MORPHINE IV PRN (20:39)
--- NOTE | 2019-04-07 00:20 | Post Operative Note ---
Pre-op diagnosis: food impaction, nausea Post-op diagnosis: same Findings: EGD: food impaction ring g-e junction pushed in but lodge w/in large hiatal hernia - piece-meal moving impaction to stomach - otherwise benign Procedure: EGD Anesthesia: MAC Surgeon: BENNIE BOLDEN Estimated blood loss: none Pathology: list Specimen disposition: to lab Condition: stable Disposition: floor
[2019-04-07] MEDS: SODIUM CHLORIDE FLUSH SYRINGE 10 ML IV SCH ×2 (01:33→12:43)
[2019-04-07] MEDS: MORPHINE IV PRN ×2 (01:47→10:00)
--- NOTE | 2019-04-07 02:31 | Operative Report ---
PROCEDURE: EGD with food disimpaction. INDICATION: Food impaction. DESCRIPTION OF PROCEDURE: The procedure was done as a case in the operating room. The patient was brought to the procedure room. The patient had the procedure discussed with him at length. All risks, complications, and benefits were discussed after which the patient signed for the procedure to be performed. The patient was placed in left lateral decubitus position. General anesthesia with intubation was performed by Anesthesia for sedation. After sedation, a mouth block was placed in the patient's oral cavity. After sedation, the endoscope was introduced into the mouth and brought to the level of the second portion of duodenum. Retroflexion view was performed. The patient's vital signs remained stable throughout the procedure. FINDINGS: There was noted to be a [id number] sized food impaction noted. Again, the GE junction ring was noted approximately 38 cm from the gums. This area was erythematous and inflamed. With moderate pressure, I was able to push the impaction forward. There was noted to be a large hiatal hernia. The impaction then lodged within the hiatal hernia sac itself. There was noted to be also some food material within the sac previously. A ____ was then used to piecemeal remove this food bolus from the hiatal hernia and move it into the gastric body. This was successful. The stomach and duodenum appeared grossly normal. Retroflexion showed no other pathology. The patient tolerated the procedure well. No complications during the procedure. IMPRESSION: 1. Food bolus at the gastroesophageal junction, status post pushing into a large hiatal hernia and then piecemeal into the stomach. 2. Ring, gastroesophageal junction now with erythema and inflammation. 3. Large hiatal hernia. 4. Otherwise, benign esophagogastroduodenoscopy. RECOMMENDATIONS: 1. PPI daily. 2. Clear liquid diet, advance as tolerated. 3. If stable in a.m., okay to discharge from GI standpoint. 4. The patient will require EGD with dilatation when stable as an outpatient. JOB# [id number] CAB/NTS
[2019-04-07 06:01] LABS: Basophils # (Auto) 0.1 K/mm3 (0.0-0.1); Basophils % (Auto) 1.3 % (0.0-1.8); Eosinophils # (Auto) 0.2 K/mm3 (0.0-0.4); Eosinophils % (Auto) 5.7 % (0.0-4.3); Hematocrit 30.6 % (35.5-45.6); Hemoglobin 9.3 gm/dl (11.8-15.2); Lymphocytes # (Auto) 1.2 K/mm3 (1.2-5.4); Lymphocytes % (Auto) 29.7 % (13.4-35.0); Mean Corpuscular HGB Conc 31 % (32-34); Mean Corpuscular Volume 73 fl (84-94); Monocytes # (Auto) 0.4 K/mm3 (0.0-0.8); Monocytes % (Auto) 8.7 % (0.0-7.3); Platelet Count 188 K/mm3 (140-440); Red Blood Count 4.18 M/mm3 (3.65-5.03); Red Cell Distribution Width 17.6 % (13.2-15.2)
[2019-04-07 06:26] LABS: BUN/Creatinine Ratio 20; Blood Urea Nitrogen 14 mg/dL (9-20); Calcium 8.5 mg/dL (8.4-10.2); Hemolysis Index 4
[2019-04-07] MEDS ORDERED: PROTONIX IV SCH (10:00)
--- NOTE | 2019-04-07 11:01 | Gastroenterology Progress Note ---
Assessment and Plan 1.dysphagia 2.inability to tolerate PO/food impaction? -CT showed calcified intraluminal stricture in a hiatal hernia of uncertain significance (calcified debris? bezoar?) -patient has a hx of a large HH (s/p paraesophageal HH repaired [address] Santana 2014) and chronic esophageal stricture with recurrent food impactions requiring multiple dilations in the past -s/p EGD yesterday: food impaction ring g-e junction pushed in but lodge w/in large hiatal hernia - piece-meal moving impaction to stomach - otherwise benign -okay to start on clear liquids and advance to soft diet as tolerated (would not advance past soft diet) -continue PPI and supportive care -recommend patient f/u in clinic upon discharge for repeat EGD with dilation -once tolerating PO, patient okay to be d/c per GI standpoint on PPI with f/u in clinic as above -no further recommendations at this time, will sign off. please call if needed. 3.H/o colon cancer -s/p right hemicolectomy 05/2018 Subjective Date of service: 04/07/19 Principal diagnosis: bezoar Interval history: No acute distress. Denies abd pain or N/v. Objective - Constitutional Vitals: Temp Pulse Resp BP Pulse Ox 97.7 F 74 20 133/54 97 04/07/19 08:30 04/07/19 08:30 04/07/19 08:49 04/07/19 08:30 04/07/19 08:49 General appearance: no acute distress - Respiratory Respiratory: bilateral: diminished - Cardiovascular Rhythm: regular - Gastrointestinal General gastrointestinal: Present: soft, non-tender, non-distended, normal bowel sounds - Neurologic Neurological: alert and oriented x3 - Labs CBC & Chem 7: 04/07/19 05:26 04/07/19 05:26 Labs: Laboratory Results - last 24 hr 04/07/19 04/07/19 05:26 05:26 WBC 4.1 L RBC 4.18 Hgb 9.3 L Hct 30.6 L MCV 73 L MCH 22 L MCHC 31 L RDW 17.6 H Plt Count 188 Lymph % (Auto) 29.7 [place] % (Auto) 8.7 H Eos % (Auto) 5.7 H Baso % (Auto) 1.3 Lymph # 1.2 [place] # 0.4 Eos # 0.2 Baso # 0.1 Seg Neutrophils % 54.6 Seg Neutrophils # 2.2 Sodium 140 Potassium 3.6 Chloride 104.8 Carbon Dioxide 24 Anion Gap 15 BUN 14 Creatinine 0.7 L Estimated GFR > 60 BUN/Creatinine Ratio 20 Glucose 110 H Calcium 8.5
--- NOTE | 2019-04-07 17:08 | Discharge Summary ---
Providers - Providers Date of Admission: 04/06/19 13:19 Date of discharge: 04/07/19 Attending physician: IRAIDA BROOKS 04/06/19 10:38 Consult to Physician [CONS] Urgent Comment: Phlyicia notified @ 10:31- LXM Consulting Provider: BENNIE BOLDEN Physician Instructions: Reason For Exam: bezoar Primary care physician: INS[employer] SUPERVISOR Hospitalization Condition: Fair Hospital course: patient is 84 year old man with history of esophageal stenosis on multiple dilatation in the past. He presented with sensation of food being stuck in his chest. he stated that he has not been able to eat or drink for over 4 days due to this. he was seen and evaluated in Ed and admitted. GI Physician was consulted and EGD was done. EGD revealed food impaction ring at GE junction, was pushed in. He was started on clear liquid diet, advanced diet he was subsequently discharged home to follow as an outpatient Disposition: [id number]/[id number] [facility] C[facility] - Discharge Diagnoses (1) Dysphagia Status: Acute Qualifiers: Dysphagia type: pharyngoesophageal phase Qualified Code(s): R13.14 - Dysphagia, pharyngoesophageal phase (2) Esophageal obstruction due to food impaction Status: Acute (3) Esophageal stricture Status: Acute (4) Hiatal hernia Status: Acute (5) Afib Status: Chronic Qualifiers: Atrial fibrillation type: chronic Qualified Code(s): I48.2 - Chronic atrial fibrillation (6) GERD (gastroesophageal reflux disease) Status: Chronic Qualifiers: Esophagitis presence: with esophagitis Qualified Code(s): K21.0 - Gastro- esophageal reflux disease with esophagitis (7) HTN (hypertension) Status: Chronic Qualifiers: Hypertension type: essential hypertension (8) Paroxysmal atrial fibrillation Status: Chronic Core Measure Documentation - Palliative Care Palliative Care/ Comfort Measures: Not Applicable - Core Measures Any of the following diagnoses?: none Exam - Constitutional Vitals: Temp Pulse Resp BP Pulse Ox 98.3 F 75 20 138/69 98 04/07/19 14:47 04/07/19 14:47 04/07/19 14:47 04/07/19 14:47 04/07/19 14:47 Plan Activity: no restrictions Diet: other (GI soft diet) Additional Instructions: 1.Follow up with Physician at [facility] in 2-3 days. 2.Follow up with MYRTLE Lee in 1 week. Follow up with: PRIMARY CARE, [Primary Care Provider] - 3-5 Days
[2019-04-07 20:31] VITALS: BP 114/68
== END 2019-04-07 21:45 | DRG 394 ==
LOC: ED 07:32 → 2B-ACE 13:19
PROVIDERS: ADMIT Internal Medicine; ATTEND Internal Medicine
PROC: 0DJ08ZZ Inspection of Upper Intestinal Tract, Via Natural or Artificial Opening Endoscopic (ICD-10-PCS; principal; 2019-04-06)
DX: T18.128A Food in esophagus causing other injury, initial encounter (principal); K44.0 Diaphragmatic hernia with obstruction, without gangrene; T18.198A Other foreign object in esophagus causing other injury, initial encounter; I10 Essential (primary) hypertension; I25.2 Old myocardial infarction; K21.9 Gastro-esophageal reflux disease without esophagitis; M19.90 Unspecified osteoarthritis, unspecified site; G43.909 Migraine, unspecified, not intractable, without status migrainosus; R56.9 Unspecified convulsions; J44.9 Chronic obstructive pulmonary disease, unspecified; G62.9 Polyneuropathy, unspecified; K22.2 Esophageal obstruction; I48.2 Chronic atrial fibrillation; I25.10 Atherosclerotic heart disease of native coronary artery without angina pectoris; G20 Parkinson's disease; E78.5 Hyperlipidemia, unspecified; R13.10 Dysphagia, unspecified; X58.XXXA Exposure to other specified factors, initial encounter; Y93.89 Activity, other specified; Y92.89 Other specified places as the place of occurrence of the external cause; Y99.8 Other external cause status; Z85.038 Personal history of other malignant neoplasm of large intestine; Z86.73 Personal history of transient ischemic attack (TIA), and cerebral infarction without residual deficits; Z88.8 Allergy status to other drugs, medicaments and biological substances; Z95.810 Presence of automatic (implantable) cardiac defibrillator
CPT/HCPCS: 36415; 71045; 74176; 80048; 80076; 81001; 83690; 83735; 85025; 85610; 85730; 86850; 86900; 86901; 93005; 93010; 96374; 96375; G0378; C9113; J1885; J2270; J2405; J2704; J3010; J7030